=== PATIENT | male | born 1930 | race Caucasian/White ===

== ENCOUNTER 2016-11-16 11:54 | Inpatient (IN) ==
--- NOTE | 2016-11-16 12:34 | Emergency Department Report ---
SOB HPI - General Chief Complaint: Shortness of Breath/Dyspnea Stated Complaint: low oxygen Time Seen by Provider: 11/16/16 12:26 Source: patient Mode of arrival: ambulatory Limitations: no limitations - History of Present Illness He presents to ER today with his daughter. He has a granddaughter who is a [employer]ENTICE and checks on him. Today they checked his O2 and was noted to be 86% on RA. He has had increased fatigue over the last month or so. He usually takes care of his in the evenings but he has not really been able to do this even. He has had a cough that is productive of greyish sputum but otherwise has not had a fever. He does feel like his chest is heavy at night when he lays down to go to bed but has not really had any wheezing at all. 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 He has never been diagnosed with any respiratory illness or disease. Has had some heart issues in the past however. MD Complaint: shortness of breath Severity: moderate Consistency/Duration: constant Relieving factors: nothing Exacerbating factors: nothing Associated symptoms: cough, sputum production, other (fatigue) Treatment prior to arrival: none - Related Data Home Medications Medication Instructions Recorded Confirmed Atenolol 50 mg PO AM #0 tab 07/21/14 11/16/16 Finasteride 5 mg PO DAILY #0 tab 07/21/14 11/16/16 Amlodipine [Norvasc] 5 mg PO DAILY 11/16/16 11/16/16 Apixaban [Eliquis] 2.5 mg PO DAILY 11/16/16 11/16/16 Atenolol [Tenormin] 25 mg PO PM 11/16/16 11/16/16 Pravastatin Sodium 40 mg PO HS 11/16/16 11/16/16 Previous Rx's Medication Instructions Recorded Amiodarone HCl 200 mg PO DAILY #30 tab 09/02/14 Allergies Allergy/AdvReac Type Severity Reaction Status Date / Time No Known Allergies Allergy Verified 11/16/16 12:26 Review of Systems Constitutional: Reports: weakness. Denies: fever, chills ENT: Denies: ear pain, throat pain, congestion Cardiovascular: Denies: chest pain, palpitations, dyspnea on exertion, edema Respiratory: Reports: cough, dyspnea. Denies: wheezes Gastrointestinal: Denies: abdominal pain, nausea, vomiting, diarrhea Integumentary: Denies: rash Neurological: Denies: headache, weakness, numbness, paresthesias PFSH Patient Stated Medical History Cardiac Arrhythmia Yes: Hx of AFib- no longer Hypertension Yes atrial fibrillation BPH COPD CAD Hypertension Obesity - Social History Smoking status: Never smoker Substance use type: does not use Alcohol intake frequency: does not drink Physical Exam - Limitations Limitations: no limitations - General General appearance: alert, in no apparent distress - Normal Exams: ENMT:: No facial trauma, nasal exudates, pharyngeal erythema, or exudates are noted Neck:: Full range of motion, without adenopathy, JVD, bruits or thyromegaly Chest/Respirations:: Clear all olsen, with good airflow, and symmetry bilaterally Cardiovascular:: Regular rate and rhythm, without murmur or gallop, Pulses 2+ all extremities, capillary refill, <2 seconds all extremities Abdomen:: Bowel sounds positive, soft, non-tender, non-distended, no hepatosplenomegaly, masses or bruits noted Lymphatic:: No lymphadenopathy, or lymphedema noted Neurological:: Patient is alert, and oriented Psychiatric:: Patient exhibits, appropriate attention, emotion and affect Course Vital Signs Temperature 98.6 F 11/16/16 11:58 Pulse Rate 83 11/16/16 11:58 Respiratory Rate 22 11/16/16 11:58 Blood Pressure 126/87 11/16/16 11:58 Pulse Oximetry 86 L 11/16/16 11:58 Temperature 98.6 F 11/16/16 11:58 Pulse Rate 83 11/16/16 11:58 Respiratory Rate 22 11/16/16 11:58 Blood Pressure 126/87 11/16/16 11:58 Pulse Oximetry 86 L 11/16/16 11:58 Shortness of Breath/Dyspnea - [facility] Narrative Medical decision making narrative: His O2 remains at 91-93% on 2L O2 per NC. Chest xray does show moderate pulmonary edema. Troponin is negative. BNP elevated at 3800. Did discuss findings with Dr Do and he will accept for admission at this time. - Differential Diagnosis Likely: acute exacerbation of chronic obstructive airways disease, congestive heart failure, community acquired pneumonia - Lab Data Attestation: I reviewed the patient's lab results. Result diagrams: 11/16/16 12:21 11/16/16 12:21 Lab Results 11/16/16 11/16/16 Range/Units 12:21 12:21 WBC 10.5 (4.5-11.0) T/MM3 RBC 3.90 L (4.50-5.90) M/MM3 Hgb 12.2 L (13.5-17.5) GM/DL Hct 36.3 L (41-53) % MCV 93.1 (80-100) UM3 MCH 31.3 (26-34) UUG MCHC 33.6 (31-37) GM/DL RDW Std Deviation 47.2 (36.9-50.2) FL Plt Count 273 (130-400) T/MM3 MPV 10.5 (9.4-12.4) UM3 Immature Gran % (Auto) 1.1 H (0.0-0.5) % Neut % (Auto) 76.4 H (33-66) % Lymph % (Auto) 9.3 L (23-45) % [place] % (Auto) 10.8 H (0-9.0) % Eos % (Auto) 2.1 (0-4) % Baso % (Auto) 0.3 (0-2) % Neut # (Auto) 8.0 H (1.8-7.7) T/MM3 Lymph # (Auto) 1.0 (1-4.8) T/MM3 [place] # (Auto) 1.1 H (0-0.8) T/MM3 Eos # (Auto) 0.2 (0-0.5) T/MM3 Baso # (Auto) 0.0 (0-0.2) T/MM3 Abs Immat Gran (auto) 0.11 H (0.00-0.03) T/MM3 Turbidity < 20 (0-20) Sodium 138 (134-144) MEQ/L Potassium 4.7 (3.6-5) MEQ/L Chloride 102 (98-107) MEQ/L Carbon Dioxide 27 (22-30) MEQ/L Anion Gap 9 (5-15) MEQ/L BUN 30.0 H (9-20) MG/DL Creatinine 1.7 H (0.8-1.5) MG/DL GFR Calculation 38 BUN/Creatinine Ratio 18 (6-26) RATIO Glucose 104 (75-110) MG/DL Calculated Osmolality 272 (261-280) MOSM/KG Calcium 8.9 (8.4-10.2) MG/DL Total Bilirubin 1.50 H (0.20-1.30) MG/DL Icterus Index < 2 (0-7) AST 22 (17-59) U/L ALT 35 (21-72) U/L Alkaline Phosphatase 92 (38-126) U/L Troponin I < 0.012 (0-0.12) ng/ml B-Natriuretic Peptide 3880 H (0-175) pg/mL Total Protein 7.6 (6.3-8.2) G/DL Albumin 3.8 (3.5-5.0) G/DL Globulin 3.8 H (2.4-3.6) G/DL Albumin/Globulin Ratio 1.0 L (1.1-2.2) RATIO Specimen Hemolysis < 15 (0-25) - Radiology Data Attestation: I reviewed the patient's radiology results. Date of Exam: 11/16/16 Ordering Provider: Sophia Jaramillo APRN Type of Exam(s): XR chest 2V Reason for Exam(s): dyspnea INDICATION: dyspnea PROCEDURE: CHEST 2-VIEWS UPRIGHT (PA & LAT) Encounter: Initial COMPARISON: June 10, 2010 FINDINGS: Hazy airspace and interstitial reticular opacity in both lungs with a central predominance. No focal lobar consolidation, gross pleural effusion or pneumothorax. Heart size and mediastinal contours are stable. Pulmonary vascularity is somewhat indistinct. Impression: Findings most consistent with moderate pulmonary edema. . Disposition Clinical Impression: Congestive heart failure Qualifiers: Congestive heart failure type: unspecified congestive heart failure type Congestive heart failure chronicity: acute Qualified Code(s): I50.9 - Heart failure, unspecified Disposition: 02 To [facility] Acute Care Condition: Stable Time of Disposition: 13:27 - Seen By: midlevel
--- OUTSIDE RECORDS SUMMARY | 2016-11-16 12:42 | External Medical Summary ---
:1930 Author Organization [facility] Address [address] [place] [address] Care Team Providers Name Role Phone Antonio Moody Unavailable Unavailable PROBLEMS Type Condition ICD9-CM NTS96-CU Onset Condition SNOMED Code Code Code Dates Status Problem Paroxysmal atrial I48.0 Active 274135927 fibrillation Problem High risk Z79.899 Active 142131969 medication use Assessment Paroxysmal atrial I48.0 Feb, Active 737502250 fibrillation 2017 Assessment Atrial flutter I48.92 Feb, Active 1171991 2017 Problem Chronic Z79.01 Active 549616349 anticoagulation Problem Atrial fibrillation 427.31 Active 76099522 ALLERGIES Substance Reaction Event Type Date Status N.K.D.A. Unknown Non Drug Allergy Feb, Unknown SOCIAL HISTORY No smoking Hx information available PLAN OF CARE Activity Details Pending Test AtriaECW 1 Week after the procedure,Reason: VITAL SIGNS Height 68 in 2016-03-01 Weight 206 lbs 2016-03-01 BMI 31.32 kg/m2 2016-03-01 Oximetry 97% % 2016-03-01 Heart Rate 89 /min 2016-03-01 Blood pressure systolic 110 mm Hg 2016-03-01 Blood pressure diastolic 74 mm Hg 2016-03-01 MEDICATIONS Medication Instructions Dosage Frequency Start End Date Duration Status Date Amiodarone HCl Orally Once a 1 tablet 24h 90 days Active 200 MG day Eliquis 5 MG Orally bid 1 tablet 12h Active Finasteride 5 Orally Once a 1 tablet 24h Active MG day Tamsulosin HCl Orally Once a 1 capsule 24h Active 0.4 MG day Atenolol 50 MG Orally Once a 1 tablet in 24h Active day am, 1/2 tab in pm Simvastatin 80 Orally Once a 1/2 tablet 24h Active MG day Losartan Orally Once a 1 tablet 24h Active Potassium 100 day MG RESULTS No Results PROCEDURES Procedure Date Ordered Related Diagnosis Body Site ELECTROCARDIOGRAM, COMPLETE Mar 01, 2016 Office Visit, Est Pt., Level 4 Mar 01, 2016 IMMUNIZATIONS No Known Immunizations
--- OUTSIDE RECORDS SUMMARY | 2016-11-16 12:43 | External Medical Summary | Referral Summary ---
:1930 Author Care Team Providers Name Role Phone Kamran Luna Primary Care Physician Encounter [facility] [id number] Date(s): 06/11/14 - 06/11/14 Via SHEELA Chacko, Ang Family [address] [place] [id number] Discharge Diagnosis: Fatigue Discharge Diagnosis: Atrial fibrillation and flutter Discharge Diagnosis: Shortness of breath dyspnea Discharge Disposition: Home or Self Care Attending Physician: Kamran Luna MD Admitting Physician: Kamran Luna MD Vital Signs Most recent to oldest [Reference Range]: 1 Peripheral Pulse Rate [60-100 bpm] 84 bpm (06/11/14 3:23 PM) Blood Pressure [90-140/60-90 mmHg] 148/100 mmHg *HI* (06/11/14 3:23 PM) Problem List Condition Effective Dates Status Health Status Informant BPH (benign prostatic hypertrophy) Active with prostatism(Confirmed) Compression fracture of L2 lumbar Active vertebra with delayed healing(Confirmed) Hearing loss(Confirmed) Active Hypertension(Confirmed) Active Tobacco user(Confirmed) Active patient Chicken pox(Confirmed) Active Allergies, Adverse Reactions, Alerts No Known Medication Allergies Medications atenolol Oral, Daily, 0 Refill(s) Start Date: 06/11/14 Status: Orderedfinasteride 5 mg oral tablet 1 tabs, Oral, Daily, # 30 tabs, 0 Refill(s) Start Date: 06/11/14 Status: OrderedFlomax 0.4 mg oral capsule 1 caps, Oral, Daily, # 30 caps, 0 Refill(s) Start Date: 06/11/14 Status: OrderedMobic 7.5 mg oral tablet 1 tabs, Oral, BID, # 60 tabs, 4 Refill(s), Pharmacy: [facility] #[id number], 1 tabs Oral BID Start Date: 05/28/14 Status: Orderedmultivitamin Daily, 0 Refill(s) Start Date: 05/28/14 Status: Orderedsimvastatin 40 mg oral tablet 1 tabs, Oral, Bedtime (once a day), # 30 tabs, 0 Refill(s) Start Date: 06/11/14 Status: Ordered Results Hematology Most recent to oldest [Reference Range]: 1 WBC [4.8-10.8 K/uL] 9.7 K/uL (06/11/14 4:40 PM) RBC [4.60-6.20 M/uL] 4.56 M/uL *LOW* (06/11/14 4:40 PM) Hgb [14.0-18.0 gm/dL] 14.2 gm/dL (06/11/14 4:40 PM) Hct [42.0-52.0 %] 41.3 % *LOW* (06/11/14 4:40 PM) MCV [82.0-99.0 fL] 90.6 fL (06/11/14 4:40 PM) MCH [27.0-32.0 pg] 31.1 pg (06/11/14 4:40 PM) MCHC [32.0-36.0 gm/dL] 34.4 gm/dL (06/11/14 4:40 PM) RDW [11.5-14.5 %] 13.6 % (06/11/14 4:40 PM) Platelet [150-400 K/uL] 241 K/uL (06/11/14 4:40 PM) MPV [8.8-14.8 fL] 11.2 fL (06/11/14 4:40 PM) Immature Granulocytes [0.0-1.0 %] 0.3 % (06/11/14 4:40 PM) Neutrophils [51-75 %] 73 % (06/11/14 4:40 PM) Lymphocytes [20-46 %] 15 % *LOW* (06/11/14 4:40 PM) Monocytes [4-11 %] 9 % (06/11/14 4:40 PM) Eosinophils [0-4 %] 4 % (06/11/14 4:40 PM) Basophils [0-2 %] 0 % (06/11/14 4:40 PM) Neutro Absolute [1.90-7.00 THOUS] 7.06 THOUS *HI* (06/11/14 4:40 PM) Lymph Absolute [0.80-3.30 THOUS] 1.41 THOUS (06/11/14 4:40 PM) Cole Absolute [0.30-1.00 THOUS] 0.86 THOUS (06/11/14 4:40 PM) Eos Absolute [0.00-0.50 THOUS] 0.35 THOUS (06/11/14 4:40 PM) Baso Absolute [0.00-0.20 THOUS] 0.03 THOUS (06/11/14 4:40 PM) Chemistry Most recent to oldest [Reference Range]: 1 Sodium Lvl [135-144 mEq/L] 138 mEq/L (06/11/14 4:40 PM) Potassium Lvl [3.5-5.2 mEq/L] 4.9 mEq/L (06/11/14 4:40 PM) Chloride [99-111 mEq/L] 103 mEq/L (06/11/14 4:40 PM) CO2 [23-31 mEq/L] 26 mEq/L (06/11/14 4:40 PM) AGAP [3-20] 9 (06/11/14 4:40 PM) BUN [8-26 mg/dL] 33 mg/dL *HI* (06/11/14 4:40 PM) Glucose Lvl [70-99 mg/dL] 97 mg/dL (06/11/14 4:40 PM) Creatinine Lvl [0.72-1.25 mg/dL] 1.74 mg/dL *HI* (06/11/14 4:40 PM) eGFR [>60 mL/min] 38 mL/min 1 *ABN* (06/11/14 4:40 PM) Calcium Lvl [8.9-10.5 mg/dL] 10.0 mg/dL (06/11/14 4:40 PM) Albumin Lvl [3.4-4.8 gm/dL] 4.2 gm/dL (06/11/14 4:40 PM) Total Protein [6.2-8.1 gm/dL] 6.8 gm/dL (06/11/14 4:40 PM) Globulin [1.8-4.0 gm/dL] 2.6 gm/dL (06/11/14 4:40 PM) ALT [0-55 unit/L] 38 unit/L (06/11/14 4:40 PM) AST [5-34 unit/L] 33 unit/L (06/11/14 4:40 PM) Alk Phos [40-150 unit/L] 55 unit/L (06/11/14 4:40 PM) Bili Total [0.2-1.2 mg/dL] 0.9 mg/dL (06/11/14 4:40 PM) Troponin [0.00-0.03 ng/mL] 0.03 ng/mL (06/11/14 4:40 PM) T4 [4.8-11.7 mcg/dL] 5.6 mcg/dL (06/11/14 4:40 PM) TSH [0.35-4.94] 2.67 (06/11/14 4:40 PM) 1Result Comment: Multiply eGFR results by 1.21 for race. Immunizations No data available for this section Procedures Procedure Date Related Diagnosis Body Site Procedure-NANDO 08/12/02 Circumcision Vasectomy Social History Social History Type Response Smoking Status Former smoker; Type: Cigarettes Assessment and Plan Extracted from: Title: Office Visit Note Author: Kamran Luna MD Date: 06/11/14 Assessment/Plan Atrial fibrillation and flutter Discussed the usage of Coumadin verse Xarelto. Lab is pending and will set patient up to see a power manager for further evaluation. Ordered: Office Visit Level 4 Est 11014 Fatigue Ordered: Office Visit Level 4 Est 06004 T4 Troponin TSH 3rd Generation Shortness of breath dyspnea Ordered: CBC w/ Differential Comprehensive Metabolic Panel Office Visit Level 4 Est 34355
--- OUTSIDE RECORDS SUMMARY | 2016-11-16 12:43 | External Medical Summary | Referral Summary ---
:1930 Author Organization [facility] Address [address] [place] [address] [place] [phone] Care Team Providers Name Role Phone Kamran Luna Primary Care Physician Encounter VC Date(s): 10/27/15 - 10/27/15 [facility] [address] [place] [phone] Discharge Diagnosis: Atrial fibrillation and flutter Discharge Diagnosis: Hypertension Discharge Disposition: 01-Home or Self Care Attending Physician: Amy Ellis PA-C Admitting Physician: Amy Ellis PA-C Vital Signs Most recent to oldest [Reference Range]: 1 Peripheral Pulse Rate [60-100 bpm] 60 bpm (10/27/15 2:12 PM) Respiratory Rate [14-20 br/min] 20 br/min (10/27/15 2:12 PM) Blood Pressure [90-140/60-90 mmHg] 162/68 mmHg *HI* (10/27/15 2:12 PM) SpO2 95 % (10/27/15 2:12 PM) Problem List Condition Effective Dates Status Health Status Informant Atrial fibrillation and Active flutter(Confirmed) BPH (benign prostatic hypertrophy) Active with prostatism(Confirmed) Chronic obstructive pulmonary disease Active (COPD)(Confirmed) Compression fracture of L2 lumbar Active vertebra with delayed healing(Confirmed) CAD (coronary artery Active disease)(Confirmed) Hearing loss(Confirmed) Active Hypertension(Confirmed) Active Obesity(Confirmed) Active patient Incidental pulmonary nodule(Confirmed) Active Tobacco user(Confirmed) Active patient Chicken pox(Confirmed) Active Allergies, Adverse Reactions, Alerts No Known Medication Allergies Medications amiodarone Daily, 0 Refill(s) Start Date: 10/22/14 Status: Orderedatenolol 50 mg, Oral, Daily, 0 Refill(s) Start Date: 06/11/14 Status: Orderedfinasteride 5 mg oral tablet 1 tabs, Oral, Daily, # 30 tabs, 0 Refill(s) Start Date: 06/11/14 Status: OrderedFlomax 0.4 mg oral capsule 1 caps, Oral, Daily, # 30 caps, 0 Refill(s) Start Date: 06/11/14 [facility] and Treat DX: I50.9, # 1 Each, 0 Refill(s) Start Date: 03/24/15 Status: Orderedlosartan 100 mg oral tablet 1 tabs, Oral, Daily, # 90 tabs, 0 Refill(s) Start Date: 06/20/14 Status: OrderedPradaxa 150 mg oral capsule 1 caps, Oral, BID, # 180 caps, 0 Refill(s) Start Date: 06/20/14 Status: Orderedsimvastatin 40 mg oral tablet 1 tabs, Oral, Bedtime (once a day), # 30 tabs, 0 Refill(s) Start Date: 06/11/14 Status: Ordered Results No data available for this section Immunizations No data available for this section Procedures Procedure Date Related Diagnosis Body Site Procedure-NANDO 08/12/02 Circumcision Vasectomy Social History Social History Type Response Smoking Status Former smoker; Type: Cigarettes Assessment and Plan Extracted from: Title: Ambulatory Patient Education Author: Amy Ellis PA-C Date: Cardiovascular Atrial Fibrillation Atrial fibrillation is a type of irregular heart rhythm (arrhythmia). During atrial fibrillation, the upper chambers of the heart (atria) quiver continuously in a chaotic pattern. This causes an irregular and often rapid heart rate. Atrial fibrillation is the result of the heart becoming overloaded with disorganized signals that tell it to beat. These signals are normally released one at a time by a part of the right atrium called the sinoatrial node. They then travel from the atria to the lower chambers of the heart (ventricles), causing the atria and ventricles to contract and pump blood as they pass. In atrial fibrillation, pa rts of the atria outside of the sinoatrial node also release these signals. This results in two problems. First, the atria receive so many signals that they do not have time to fully contract. Second, t he ventricles, which can only receive one signal at a time, beat irregularly and out of rhythm with the atria. There are three types of atrial fibrillation: Paroxysmal. Paroxysmal atrial fibrillation starts suddenly and stops on its own within a week. Persistent. Persistent atrial fibrillation lasts for more than a week. It may stop on its own or with treatment. Permanent. Permanent atrial fibrillation does not go away. Episodes of atrial fibrillation may lead to permanent atrial fibrillation. Atrial fibrillation can prevent your heart from pumping blood normally. It increases your risk of stroke and can lead to heart failure. CAUSES Heart conditions, including a heart attack, heart failure, coronary artery disease, and heart valve conditions. Inflammation of the sac that surrounds the heart (pericarditis). Blockage of an artery in the lungs (pulmonary embolism). Pneumonia or other infections. Chronic lung disease. Thyroid problems, especially if the thyroid is overactive ( hyperthyroidism). Caffeine, excessive alcohol use, and use of some illegal drugs. Use of some medicines, including certain decongestants and diet pills. Heart surgery. defects. Sometimes, no cause can be found. When this happens, the atrial fibrillation is called lone atrial fibrillation. The risk of complications from atrial fibrillation increases if you have lone atrial fibrillation and you are age 60 years or older. RISK FACTORS Heart failure. Coronary artery disease. Diabetes mellitus. High blood pressure (hypertension). Obesity. Other arrhythmias. Increased age. SIGNS AND SYMPTOMS A feeling that your heart is beating rapidly or irregularly. A feeling of discomfort or pain in your chest. Shortness of breath. Sudden light-headedness or weakness. Getting tired easily when exercising. Urinating more often than normal (mainly when atrial fibrillation first begins). In paroxysmal atrial fibrillation, symptoms may start and suddenly stop. DIAGNOSIS Your health care provider may be able to detect atrial fibrillation when taking your pulse. Your health care provider may have you take a test called an ambulatory electrocardiogram (ECG). An ECG record s your heartbeat patterns over a 24-hour period. You may also have other tests , such as: Transthoracic echocardiogram (TTE). During echocardiography, sound waves are used to evaluate how blood flows through your heart. Transesophageal echocardiogram ([facility]RAYDON). Stress test. There is more than one type of stress test. If a stress test is needed, ask your health care provider about which type is best for you. Chest X-ray exam. Blood tests. Computed tomography (CT). TREATMENT Treatment may include: Treating any underlying conditions. For example, if you have an overactive thyroid, treating the condition may correct atrial fibrillation. Taking medicine. Medicines may be given to control a rapid heart rate or to prevent blood clots, heart failure, or a stroke. Having a procedure to correct the rhythm of the heart: Electrical cardioversion. During electrical cardioversion, a controlled , low-energy shock is delivered to the heart through your skin. If you have chest pain, very low blood pressure, or sudden h eart failure, this procedure may need to be done as an emergency. Catheter ablation. During this procedure, heart tissues that send the signals that cause atrial fibrillation are destroyed. Surgical ablation. During this surgery, thin lines of heart tissue that carry the abnormal signals are destroyed. This procedure can either be an open- heart surgery or a minimally invasive surger y. With the minimally invasive surgery, small cuts are made to access the heart instead of a large opening. Pulmonary venous isolation. During this surgery, tissue around the veins that carry blood from the lungs (pulmonary veins) is destroyed. This tissue is thought to carry the abnormal signals. HOME CARE INSTRUCTIONS Take medicines only as directed by your health care provider. Some medicines can make atrial fibrillation worse or recur. If blood thinners were prescribed by your health care provider, take them exactly as directed. Too much blood-thinning medicine can cause bleeding. If you take too little, you will not have the n eeded protection against stroke and other problems. Perform blood tests at home if directed by your health care provider. Perform blood tests exactly as directed. Quit smoking if you smoke. Do not drink alcohol. Do not drink caffeinated beverages such as coffee, soda, and some teas. You may drink decaffeinated coffee, soda, or tea. Maintain a healthy weight.Do not use diet pills unless your health care provider approves. They may make heart problems worse. Follow diet instructions as directed by your health care provider. Exercise regularly as directed by your health care provider. Keep all follow-up visits as directed by your health care provider. This is important. PREVENTION The following substances can cause atrial fibrillation to recur: Caffeinated beverages. Alcohol. Certain medicines, especially those used for breathing problems. Certain herbs and herbal medicines, such as those containing ephedra or ginseng. Illegal drugs, such as cocaine and amphetamines. Sometimes medicines are given to prevent atrial fibrillation from recurring. Proper treatment of any underlying condition is also important in helping prevent recurrence. SEEK MEDICAL CARE IF: You notice a change in the rate, rhythm, or strength of your heartbeat. You suddenly begin urinating more frequently. You tire more easily when exerting yourself or exercising. SEEK IMMEDIATE MEDICAL CARE IF: You have chest pain, abdominal pain, sweating, or weakness. You feel nauseous. You have shortness of breath. You suddenly have swollen feet and ankles. You feel dizzy. Your face or limbs feel numb or weak. You have a change in your vision or speech. MAKE SURE YOU: Understand these instructions. Will watch your condition. Will get help right away if you are not doing well or get worse. This information is not intended to replace advice given to you by your health care provider. Make sure you discuss any questions you have with your health care provider. Document Released: 02/06/2006 Document Revised: 02/27/2015 Document Reviewed: 03/19/2013 [facility] Patient Information 2016 [facility]. [facility] Medicine Hypertension Hypertension, commonly called high blood pressure, is when the force of blood pumping through your arteries is too strong. Your arteries are the blood vessels that carry blood from your heart throughout your body. A blood pressure reading consists of a higher number over a lower number, such as 110/72. The higher number (systolic) is the pressure inside your arteries when your heart pumps. The lower n umber (diastolic) is the pressure inside your arteries when your heart relaxes. Ideally you want your blood pressure below 120/80. Hypertension forces your heart to work harder to pump blood. Your arteries may become narrow or stiff. Having hypertension puts you at risk for heart disease, stroke, and other problems. RISK FACTORS Some risk factors for high blood pressure are controllable. Others are not. Risk factors you cannot control include: Race. You may be at higher risk if you are . Age. Risk increases with age. Gender. Men are at higher risk than women before age 45 years. After age 65, women are at higher risk than men. Risk factors you can control include: Not getting enough exercise or physical activity. Being overweight. Getting too much fat, sugar, calories, or salt in your diet. Drinking too much alcohol. SIGNS AND SYMPTOMS Hypertension does not usually cause signs or symptoms. Extremely high blood pressure (hypertensive crisis) may cause headache, anxiety, shortness of breath , and nosebleed. DIAGNOSIS To check if you have hypertension, your health care provider will measure your blood pressure while you are seated, with your arm held at the level of your heart. It should be measured at least twice us ing the same arm. Certain conditions can cause a difference in blood pressure between your right and left arms. A blood pressure reading that is higher than normal on one occasion does not mean that you need treatment. If it is not clear whether you have high blood pressure, you may be asked to return on a different day to have your blood pressure checked again. Or, you may be asked to monitor your blood pressure at home for 1 or more weeks. TREATMENT Treating high blood pressure includes making lifestyle changes and possibly taking medicine. Living a healthy lifestyle can help lower high blood pressure. You may need to change some of your habits. Lifestyle changes may include: Following the DASH diet. This diet is high in fruits, vegetables, and whole grains. It is low in salt, red meat, and added sugars. Keep your sodium intake below 2,300 mg per day. Getting at least 3045 minutes of aerobic exercise at least 4 times per week. Losing weight if necessary. Not smoking. Limiting alcoholic beverages. Learning ways to reduce stress. Your health care provider may prescribe medicine if lifestyle changes are not enough to get your blood pressure under control, and if one of the following is true: Your systolic blood pressure is above 150. Your diastolic blood pressure is above 90. You have diabetes, and your systolic blood pressure is over 140 or your diastolic blood pressure is over 85. You have heart disease or have had a stroke or heart attack, and your blood pressure is above 130 over 80, which is written as 130/80. HOME CARE INSTRUCTIONS Have your blood pressure rechecked as directed by your health care provider. Take medicines only as directed by your health care provider. Follow the directions carefully. Blood pressure medicines must be taken as prescribed. The medicine does not work as well when you sk ip doses. Skipping doses also puts you at risk for problems. Do not smoke. Monitor your blood pressure at home as directed by your health care provider. SEEK MEDICAL CARE IF: You think you are having a reaction to medicines taken. You have recurrent headaches or feel dizzy. You have swelling in your ankles. You have trouble with your vision. SEEK IMMEDIATE MEDICAL CARE IF: You develop a severe headache or confusion. You have unusual weakness, numbness, or feel faint. You have severe chest or abdominal pain. You vomit repeatedly. You have trouble breathing. MAKE SURE YOU: Understand these instructions. Will watch your condition. Will get help right away if you are not doing well or get worse. This information is not intended to replace advice given to you by your health care provider. Make sure you discuss any questions you have with your health care provider. Document Released: 02/06/2006 Document Revised: 02/27/2015 Document Reviewed: 11/29/2013 [employer] Patient Information 2016 [place] [facility]. No follow up information was provided. Extracted from: Title: Office Visit Note- Breathing Author: Amy Ellis PA-C Date: issue Assessment/Plan Atrial fibrillation and flutter D/w pt and daughter that this type of breathing is normal. He is not really having any abnormal/atypical sx. He had ablation and is rate controlled for his a-fib. He st ates that he did have a change in his anti-coagulant. He is not on Pradaxa anymore, but doesn't remember what it is. He will call us with the name when he gets home. Continue to f/u with Dr. Centeno at next scheduled appt. Ordered: Office Visit Level 3 Est 69004 Hypertension BP was elevated today.On recheck, it was 144/82. D/w pt to check occasionally at home. No change in meds at this time. Ordered: Office Visit Level 3 Est 23953
--- OUTSIDE RECORDS SUMMARY | 2016-11-16 12:43 | External Medical Summary ---
:1930 Author Organization [employer] Care Team Providers Name Role Phone Savanna Moodydaronkathy Provider Role Unavailable Allergies, Adverse Reactions, Alerts Substance Reaction Event Type N.K.D.A. Info Not Available Non Drug Allergy Problems Problem Type Condition ICD-9 Code Onset Dates Condition Status Assessment Atrial fibrillation 427.31 Active Assessment Atrial flutter 427.32 Active Problem Atrial fibrillation 427.31 Active Assessment High Risk Med V58.69 Active Assessment Chronic Anticoagulation V58.61 Active Medications Medication Code Code Instructions Start End Date Status Dosage System Date Pradaxa [facility] 39009-78 150 MG Orally 1 capsule 35-54 Twice a day Amiodarone HCl NDC 81569-23 200 MG Orally Sep 23, 1 tablet 33-06 Once a day 2014 Simvastatin NDC 17330-36 80 MG Orally 1/2 tablet 56-10 Once a day Tamsulosin HCl NDC 18038-17 0.4 MG Orally 1 capsule 38-01 Once a day 30 minutes after the same meal each day Losartan NDC 10121-52 100 MG Orally 1 tablet Potassium 25-22 Once a day Finasteride NDC 99613-56 5 MG Orally Once 1 tablet 55-01 a day Atenolol NDC 57309-61 50 MG Orally 1 tablet 52-01 Once a day Amiodarone HCl NDC 45690-50 200 MG Orally 1 tablet 33-06 Once a day Procedures Procedure Coding System Code Date Office Visit, Est Pt., Level 4 CPT-4 09981 Oct 14, 2014 ELECTROCARDIOGRAM, COMPLETE CPT-4 68971 Oct 14, 2014 Vital Signs Date/Time: Oct 14, 2014 BMI 31.05 Index Weight 204.2 lbs Height 68 in Cardiac Monitoring Heart Rate 79 /min Oximetry 97% % Blood Pressure Diastolic 80 mm Hg Blood Pressure Systolic 130 mm Hg Results No Known Results Summary Purpose [employer]ClinicalWorks Submission
--- OUTSIDE RECORDS SUMMARY | 2016-11-16 12:43 | External Medical Summary ---
:1930 Author Organization [employer] Care Team Providers Name Role Phone Antonio Moody Provider Role Unavailable Allergies No Known Allergies Problems No Known Problems Medications No Known Medications Results No Known Results Summary Purpose [employer] Submission
--- OUTSIDE RECORDS SUMMARY | 2016-11-16 12:43 | External Medical Summary | Referral Summary ---
:1930 Author Organization [facility] [address] [place] [phone] Care Team Providers Name Role Phone Kamran Luna Primary Care Physician Encounter VC Date(s): 07/30/14 - 07/30/14 [facility] [address] [place] [phone] [place] Discharge Diagnosis: Chronic renal insufficiency Discharge Disposition: 01-Home or Self Care Attending Physician: Kamran Luna MD Admitting Physician: Kamran Luna MD Vital Signs Most recent to oldest [Reference Range]: 1 Blood Pressure [90-140/60-90 mmHg] 124/84 mmHg (07/30/14 1:57 PM) Problem List Condition Effective Dates Status Health Status Informant Atrial fibrillation and Active flutter(Confirmed) BPH (benign prostatic hypertrophy) Active with prostatism(Confirmed) Chronic obstructive pulmonary disease Active (COPD)(Confirmed) Compression fracture of L2 lumbar Active vertebra with delayed healing(Confirmed) CAD (coronary artery Active disease)(Confirmed) Hearing loss(Confirmed) Active Hypertension(Confirmed) Active Incidental pulmonary nodule(Confirmed) Active Tobacco user(Confirmed) Active [...] caps, 0 Refill(s) Start Date: 06/11/14 Status: OrderedHome Health Home Health, See Instructions, Progressive Home Health Medication Monitoring and set up Foot Care, # 1 Each, 0 Refill(s) Start Date: 08/07/14 Status: Orderedlosartan 100 mg oral tablet 1 tabs, Oral, Daily, # 90 tabs, 0 Refill(s) Start Date: 06/20/14 Status: OrderedPradaxa 150 mg oral capsule 1 caps, Oral, BID, # 180 caps, 0 Refill(s) Start Date: 06/20/14 Status: Orderedsimvastatin 40 mg oral tablet 1 tabs, Oral, Bedtime (once a day), # 30 tabs, 0 Refill(s) Start Date: 06/11/14 Status: Ordered Results Chemistry Most recent to oldest [Reference Range]: 1 Sodium Lvl [135-144 mEq/L] 138 mEq/L (07/30/14 2:40 PM) Potassium Lvl [3.5-5.2 mEq/L] 4.1 mEq/L (07/30/14 2:40 PM) Chloride [99-111 mEq/L] 100 mEq/L (07/30/14 2:40 PM) CO2 [23-31 mEq/L] 27 mEq/L (07/30/14 2:40 PM) AGAP [3-20] 11 (07/30/14 2:40 PM) BUN [8-26 mg/dL] 31 mg/dL *HI* (07/30/14 2:40 PM) Glucose Lvl [70-99 mg/dL] 98 mg/dL (07/30/14 2:40 PM) Creatinine Lvl [0.72-1.25 mg/dL] 1.53 mg/dL *HI* (07/30/14 2:40 PM) eGFR [>60 mL/min] 44 mL/min 1 *ABN* (07/30/14 2:40 PM) Calcium Lvl [8.9-10.5 mg/dL] 9.8 mg/dL (07/30/14 2:40 PM) 1Result Comment: Multiply eGFR results by 1.21 for race. Immunizations No data available for this section Procedures Procedure Date Related Diagnosis Body Site Procedure-NANDO 08/12/02 Circumcision Vasectomy Social History Social History Type Response Smoking Status Former smoker; Type: Cigarettes Assessment and Plan Extracted from: Title: Ambulatory Patient Education Author: Kamran Luna MD Date: Family Medicine Coronary Artery Disease, Risk Factors Research has shown that the risk of developing coronary artery disease (CAD) and having a heart attack increases with each factor you have. RISK FACTORS YOU CANNOT CHANGE Your age. Your risk goes up as you get older. Most heart attacks happen to people over the age of 65. Gender. Men have a greater risk of heart attack than women, and they have attacks earlier in life. However, women are more likely to from a heart attack. Heredity. Children of parents with heart disease are more likely to develop it themselves. Race. Americans and other ethnic groups have a higher risk, possibly because of high blood pressure, a tendency toward obesity, and diabetes. Your family. Most people with a strong family history of heart disease have one or more other risk factors. RISK FACTORS YOU CAN CHANGE Exposure to tobacco smoke. Even secondhand smoke greatly increases the risk for heart disease. High blood cholesterol may be lowered with changes in diet, activity, and medicines. High blood pressure makes the heart work harder. This causes the heart muscles to become thick and, eventually, weaker. It also increases your risk of stroke, heart attack, and kidney or heart failure. Physical inactivity is a risk factor for CAD. Regular physical activity helps prevent heart and blood vessel disease. Exercise helps control blood cholesterol, diabetes, obesity, and it may help lower blood pressure in some people. Excess body fat, especially belly fat, increases the risk of heart disease and stroke even if there are no other risk factors. Excess weight increases the heart's workload and raises blood pressure and blood cholesterol. Diabetes seriously increases your risk of developing CAD. If you have diabetes, you should work with your caregiver to manage it and control other risk factors. OTHER RISK FACTORS FOR CAD How you respond to stress. Drinking too much alcohol may raise blood pressure, cause heart failure, and lead to stroke. Total cholesterol greater than 200 milligrams. HDL (good) cholesterol less than 40 milligrams. HDL helps keep cholesterol from building up in the patrick of the arteries. PREVENTING CAD Maintain a healthy weight. Exercise or do physical activity. Eat a heart-healthy diet low in fat and salt and high in fiber. Control your blood pressure to keep it below 120 over 80. Keep your cholesterol at a level that lowers your risk. Manage diabetes if you have it. Stop smoking. Learn how to manage stress. HEART SMART SUBSTITUTIONS Instead of whole or 2% milk and cream, use skim milk. Instead of fried foods, eat baked, steamed, boiled, broiled, or microwaved foods. Instead of lard, butter, palm and coconut oils, cook with unsaturated vegetable oils, such as corn, olive, canola, safflower, sesame, soybean, sunflower, or peanut. Instead of fatty cuts of meat, eat lean cuts of meat or cut off the fatty parts. Instead of 1 whole egg in recipes, use 2 egg whites. Instead of sauces, butter, and salt, season vegetables with herbs and spices. Instead of regular hard and processed cheeses, eat low-fat, low-sodium cheeses. Instead of salted potato chips, choose low-fat, unsalted tortilla and potato chips and unsalted pretzels and popcorn. Instead of sour cream and mayonnaise, use plain low-fat yogurt, low-fat cottage cheese, or low-fat or "light" sour cream. FOR MORE INFORMATION National Heart Lung and Blood [place]: www.nhlbi.nih.gov/health/hearttruth [employer]: www.heart.org/HEARTORG Document Released: 04/28/2004 Document Revised: 04/30/2012 Document Reviewed: 04/23/2008 ExitCare Patient Information 2014 [employer]. Chronic Kidney Disease Chronic kidney disease occurs when the kidneys are damaged over a long period. The kidneys are two organs that lie on either side of the spine between the middle of the back and the front of the abdomen. The kidneys: Remove wastes and extra water from the blood. Produce important hormones. These help keep bones strong, regulate blood pressure, and help create red blood cells. Balance the fluids and chemicals in the blood and tissues. A small amount of kidney damage may not cause problems, but a large amount of damage may make it difficult or impossible for the kidneys to work the way they should. If steps are not taken to slow down the kidney damage or stop it from getting worse, the kidneys may stop working permanently. Most of the time, chronic kidney disease does not go away. However , it can often be controlled, and those with the disease can usually live normal lives. CAUSES The most common causes of chronic kidney disease are diabetes and high blood pressure (hypertension ). Chronic kidney disease may also be caused by: Diseases that cause kidneys' filters to become inflamed. Diseases that affect the immune system. Genetic diseases. Medicines that damage the kidneys, such as anti-inflammatory medicines. Poisoning or exposure to toxic substances. A reoccurring kidney or urinary infection. A problem with urine flow. This may be caused by: Cancer. Kidney stones. An enlarged prostate in males. SYMPTOMS Because the kidney damage in chronic kidney disease occurs slowly, symptoms develop slowly and may not be obvious until the kidney damage becomes severe. A person may have a kidney disease for years wit hout showing any symptoms. Symptoms can include: Swelling (edema ) of the legs, ankles, or feet. Tiredness (lethargy ). Nausea or vomiting. Confusion. Problems with urination, such as: Decreased urine production. Frequent urination, especially at night. Frequent accidents in children who are potty trained. Muscle twitches and cramps. Shortness of breath. Weakness. Persistent itchiness. Loss of appetite. Metallic taste in the mouth. Trouble sleeping. Slowed development in children. Short stature in children. DIAGNOSIS Chronic kidney disease may be detected and diagnosed by tests, including blood , urine, imaging, or kidney biopsy tests. TREATMENT Most chronic kidney diseases cannot be cured. Treatment usually involves relieving symptoms and preventing or slowing the progression of the disease. Treatment may include: A special diet. You may need to avoid alcohol and foods thatare salty and high in potassium. Medicines. These may: Lower blood pressure. Relieve anemia. Relieve swelling. Protect the bones. HOME CARE INSTRUCTIONS Follow your prescribed diet. Only take fyfx-sxa-urrufzk or prescription medicines as directed by your caregiver. Do not take any new medicines (prescription, wmss-srj-niudcpb, or nutritional supplements) unless approved by your caregiver. Many medicines can worsen your kidney damage or need to have the dose adjusted. Quit smoking if you are a smoker. Talk to your caregiver about a smoking cessation program. Keep all follow-up appointments as directed by your caregiver. SEEK IMMEDIATE MEDICAL CARE IF: Your symptoms get worse or you develop new symptoms. You develop symptoms of end-stage kidney disease. These include: Headaches. Abnormally dark or light skin. Numbness in the hands or feet. Easy bruising. Frequent hiccups. Menstruation stops. You have a fever. You have decreased urine production. You havepain or bleeding when urinating. MAKE SURE YOU: Understand these instructions. Will watch your condition. Will get help right away if you are not doing well or get worse. FOR MORE INFORMATION [employer] Association of Kidney Patients: www.aakp.org National Kidney Foundation: www.kidney.org [employer]: www.akfinc.org Life [facility]: www.lifeoptions.org and www.kidneyschool.org Document Released: 11/15/2008 Document Revised: 01/23/2013 Document Reviewed: 10/05/2012 ExitCare Patient Information 2014 [employer]. No follow up information was provided. Extracted from: Title: Office Visit Note Author: Kamran Luna MD Date: 07/30/14 Assessment/Plan Atrial fibrillation and flutter Continue with the current medications. Refill the medications. Reviewed the lab and will follow up in 3 months. Ordered: Office Visit Level 4 Est 41783 Chronic renal insufficiency Ordered: Office Visit Level 4 Est 80990 Hypertension Ordered: Office Visit Level 4 Est 74252
--- OUTSIDE RECORDS SUMMARY | 2016-11-16 12:43 | External Medical Summary | Referral Summary ---
:1930 Author [facility] [address] [place] [address] [place] [phone] Care Team Providers Name Role Phone Kamran Luna Primary Care Physician Encounter VC Date(s): 05/01/15 - 05/01/15 [facility] [address] [place] [phone] [place] Discharge Disposition: 01-Home or Self Care Attending Physician: Kamran Luna MD Admitting Physician: Kamran Luna MD Vital Signs Most recent to oldest [Reference Range]: 1 Blood Pressure [90-140/60-90 mmHg] 138/90 mmHg (05/01/15 1:07 PM) Problem List Condition Effective Dates Status [...] Status: OrderedHome Health Home Health, See Instructions, Evaluate and Treat DX: I50.9, [...] Author: Kamran Luna MD Date: Family Medicine Cardiac Ablation Cardiac ablation is a procedure to disable a small amount of heart tissue in very specific places. The heart has many electrical connections. Sometimes these connections are abnormal and can cause the h eart to beat very fast or irregularly. By disabling some of the problem areas, heart rhythm can be improved or made normal. Ablation is done for people who: Have Skqlv-Tgialbsjc-Ohdtl syndrome. Have other fast heart rhythms (tachycardia). Have taken medicines for an abnormal heart rhythm (arrhythmia) that resulted in: No success. Side effects. May have a high-risk heartbeat that could result in . LET YOUR HEALTH CARE PROVIDER KNOW ABOUT: Any allergies you have or any previous reactions you have had to X-ray dye, food (such as seafood), medicine, or tape. All medicines you are taking, including vitamins, herbs, eye drops, creams, and jawz-mqm-cfrnska medicines. Previous problems you or members of your family have had with the use of anesthetics. Any blood disorders you have. Previous surgeries or procedures (such as a kidney transplant) you have had. Medical conditions you have (such as kidney failure). RISKS AND COMPLICATIONS Generally, cardiac ablation is a safe procedure. However, problems can occur and include: Increased risk of cancer. Depending on how long it takes to do the ablation, the dose of radiation can be high. Bruising and bleeding where a thin, flexible tube (catheter) was inserted during the procedure. Bleeding into the chest, especially into the sac that surrounds the heart (serious). Need for a permanent pacemaker if the normal electrical system is damaged. The procedure may not be fully effective, and this may not be recognized for months. Repeat ablation procedures are sometimes required. BEFORE THE PROCEDURE Follow any instructions from your health care provider regarding eating and drinking before the procedure. Take your medicines as directed at regular times with water, unless instructed otherwise by your health care provider. If you are taking diabetes medicine, including insulin, ask how you are to t skylar it and if there are any special instructions you should follow. It is common to adjust insulin dosing the day of the ablation. PROCEDURE An ablation is usually performed in a catheterization laboratory with the guidance of fluoroscopy. Fluoroscopy is a type of X-ray that helps your health care provider see images of your heart during the procedure. An ablation is a minimally invasive procedure. This means a small cut ( incision) is made in either your neck or groin. Your health care provider will decide where to make the incision based on your medical history and physical exam. An IV tube will be started before the procedure begins. You will be given an anesthetic or medicine to help you relax (sedative). The skin on your neck or groin will be numbed. A needle will be inserted into a large vein in your neck or groin and catheters will be threaded to your heart. A special dye that shows up on fluoroscopy pictures may be injected through the catheter. The dye helps your health care provider see the area of the heart that needs treatment. The catheter has electrodes on the tip. When the area of heart tissue that is causing the arrhythmia is found, the catheter tip will send an electrical current to the area and "scar" the tissue. Three types of energy can be used to ablate the heart tissue: Heat (radiofrequency energy). Laser energy. Extreme cold (cryoablation). When the area of the heart has been ablated, the catheter will be taken out. Pressure will be held on the insertion site. This will help the insertion site clot and keep it from bleeding. A bandage will be placed on the insertion site. AFTER THE PROCEDURE After the procedure, you will be taken to a recovery area where your vital signs (blood pressure, heart rate, and breathing) will be monitored. The insertion site will also be monitored for bleeding. You will need to lie still for 46 hours. This is to ensure you do not bleed from the catheter insertion site. This information is not intended to replace advice given to you by your health care provider. Make sure you discuss any questions you have with your health care provider. Document Released: 06/25/2009 Document Revised: 06/23/2014 Document Reviewed: 07/01/2013 [facility] Patient Information 2015 [employer] [facility]. Benign Prostatic Hypertrophy The prostate gland is part of the reproductive system of men. A normal prostate is about the size and shape of a walnut. The prostate gland produces a fluid that is mixed with sperm to make semen. This gland surrounds the urethra and is located in front of the rectum and just below the bladder. The bladder is where urine is stored. The urethra is the tube through which urine passes from the bladder to get out of the body. The prostate grows as a man ages. An enlarged prostate not caused by cancer is called benign prostatic hypertrophy (BPH). An enlarged prostate can press on the urethra. This can make it harder to pass u rine. In the early stages of enlargement, the bladder can get by with a narrowed urethra by forcing the urine through. If the problem gets worse, medical or surgical treatment may be required. This condition should be followed by your health care provider. The accumulation of urine in the bladder can cause infection. Back pressure and infection can progress to bladder damage and kidney (renal ) failure. If needed, your health care provider may refer you to a specialist in kidney and prostate disease (urologist). CAUSES BPH is a common health problem in men older than 50 years. This condition is a normal part of aging. However, not all men will develop problems from this condition. If the enlargement grows away from th e urethra, then there will not be any compression of the urethra and resistance to urine flow.If the growth is toward the urethra and compresses it , you will experience difficulty urinating. SYMPTOMS Not able to completely empty your bladder. Getting up often during the night to urinate. Need to urinate frequently during the day. Difficultly starting urine flow. Decrease in size and strength of your urine stream. Dribbling after urination. Pain on urination (more common with infection). Inability to pass urine. This needs immediate treatment. The development of a urinary tract infection. DIAGNOSIS These tests will help your health care provider understand your problem: A thorough history and physical examination. A urination history, with the number of times you urinate, the amounts of urine, the strength of the urine stream, and the feeling of emptiness or fullness after urinating. A postvoid bladder scan that measures any amount of urine that may remain in your bladder after you finish urinating. Digital rectal exam. In a rectal exam, your health care provider checks your prostate by putting a gloved, lubricated finger into your rectum to feel the back of your prostate gland. This exam de tects the size of your gland and abnormal lumps or growths. Exam of your urine (urinalysis). Prostate specific antigen (PSA) screening. This is a blood test used to screen for prostate cancer. Rectal ultrasonography. This test uses sound waves to electronically produce a picture of your prostate gland. TREATMENT Once symptoms begin, your health care provider will monitor your condition. Of the men with this condition, one third will have symptoms that stabilize, one third will have symptoms that improve, and on e third will have symptoms that progress in the first year. Mild symptoms may not need treatment. Simple observation and yearly exams may be all that is required. Medicines and surgery are options for more severe problems. Your health care provider can help you make an informed decision for what is best. Two classes of medicines are available for relief of prostate symptoms: Medicines that shrink the prostate. This helps relieve symptoms. These medicines take time to work, and it may be months before any improvement is seen. Uncommon side effects include problems with sexual function. Medicines to relax the muscle of the prostate. This also relieves the obstruction by reducing any compression on the urethra.This group of medicines work much faster than those that reduce the size of the prostate gland. Usually, one can experience improvement in days to weeks.. Side effects can include dizziness, fatigue, lightheadedness, and retrograde ejaculation (diminished volume of ejaculate). Several types of surgical treatments are available for relief of prostate symptoms: Transurethral resection of the prostate (TURP)In this treatment, an instrument is inserted through opening at the tip of the penis. It is used to cut away pieces of the inner core of the prost ate. The pieces are removed through the same opening of the penis. This removes the obstruction and helps get rid of the symptoms. Transurethral incision (TUIP)In this procedure, small cuts are made in the prostate. This lessens the prostates pressure on the urethra. Transurethral microwave thermotherapy (TUMT)This procedure uses microwaves to create heat. The heat destroys and removes a small amount of prostate tissue. Transurethral needle ablation (TUNA)This is a procedure that uses radio frequencies to do the same as TUMT. Interstitial laser coagulation (ILC)This is a procedure that uses a laser to do the same as TUMT and TUNA. Transurethral electrovaporization (TUVP)This is a procedure that uses electrodes to do the same as the procedures listed above. SEEK MEDICAL CARE IF: You develop a fever. There is unexplained back pain. Symptoms are not helped by medicines prescribed. You develop side effects from the medicine you are taking. Your urine becomes very dark or has a bad smell. Your lower abdomen becomes distended and you have difficulty passing your urine. SEEK IMMEDIATE MEDICAL CARE IF: You are suddenly unable to urinate. This is an emergency. You should be seen immediately. There are large amounts of blood or clots in the urine. Your urinary problems become unmanageable. You develop lightheadedness, severe dizziness, or you feel faint. You develop moderate to severe low back or flank pain. You develop chills or fever. This information is not intended to replace advice given to you by your health care provider. Make sure you discuss any questions you have with your health care provider. Document Released: 02/06/2006 Document Revised: 02/11/2014 Document Reviewed: 08/22/2013 [facility] Patient Information 2015 [employer]. No follow up information was provided. Extracted from: Title: Office Visit Note Author: Kamran Luna MD Date: 05/01/15 Assessment/Plan Atrial fibrillation and flutter Stable and controlled ventricular response. Ordered: Office Visit Level 4 Est 57125 BPH (benign prostatic hypertrophy) with prostatism continue with the current medications. Ordered: Office Visit Level 4 Est 84634 CAD (coronary artery disease) No change in treatment. Ordered: Office Visit Level 4 Est 06908 Hypertension Stable. I feel that the patient is not homebound. Ordered: Office Visit Level 4 Est 68738
--- OUTSIDE RECORDS SUMMARY | 2016-11-16 12:43 | External Medical Summary | Continuity of Care Document ---
:1930 Author Organization [facility] Allergies Active Description Code Type Severity Reaction Onset Reported/ Identified Relationship Clinical to Patient Status Yes No Known NKMA N/A N/A 05/28/2014 Medication Allergies Yes No Known No Drug Unknown N/A 10/06/2014 Allergies Known Aller Aller gy gies Yes No Known No Drug Unknown N/A 10/06/2014 Allergies Known Aller Aller gy gies Medications Problems Date Dx Attending Type Code Diagnosis Diagnosed By Coded 10/02/2014 Carlos Moody MD, A V72.81 [facility] 10/27/2015 Caleb, Final I10 Essential (primary) Amy Camarena hypertension 10/27/2015 Caleb, Final I48.91 Unspecified atrial Amy Camarena fibrillation Procedures Code Description Performed By Performed On DX Carlos Moody MD, [facility] 10/06/2014 88.72 ULTRASOUND-HEART 09/24/2015 43240 Office or other outpatient visit for the evaluation and management of an established patient, which requires at least 2 of these 3 ferro components: A detailed history; A detailed examination; Medical d 10/27/2015 41516 Office or other outpatient visit for the evaluation and management of an established patient, which requires at least 2 of these 3 ferro components: An expanded problem focused history; An expanded prob Encounters ACCT No. Visit Discharge Status Pt. Type Provider Facility Loc./Unit Complaint Date/Time [id number] 10/06/2014 10/07/2014 DIS Outpatien Carlos BerriosOPRA 70 05:05:00 13:25:00 shonna PANDA [facility] [id number] 10/02/2014 10/02/2014 DIS Outpatien Carlos BerriosPOA 52 07:44:00 07:44:00 shonna PANDA [facility] [id number] 10/27/2015 10/27/2015 DIS Outpatikari Ellis [facility] gasping for 12 14:10:00 23:59:00 Amy kilpatrick [facility] [id number] 09/24/2015 09/24/2015 DIS Outpatien Jeremy, Via [facility] New FM NEEDS 83 10:41:00 23:59:00 t Kamran [facility] [id number] 05/01/2015 05/01/2015 DIS Outpatien Jeremy, Via [facility] New FM face to 49 13:00:00 23:59:00 t Kamran Bates face Clinic [id number] 10/22/2014 10/22/2014 DIS Outpatien Jeremy, Via [facility] New FM thyroid 89 13:45:00 23:59:00 t Kamran Bates elevated Clinic spots on lungs [id number] 09/17/2014 09/17/2014 DIS Outpatien Jeremy, Via [facility] New FM Face to 94 14:05:00 23:59:00 t Kamran Bates [facility] [id number] 03/15/2016 03/16/2016 DIS Outpatien Nidhi Cedeño.EPO 68 11:50:00 14:50:00 t , [facility]
--- OUTSIDE RECORDS SUMMARY | 2016-11-16 12:43 | External Medical Summary ---
:1930 Author Organization eClinical[employer] Care Team Providers Name Role Phone Antonio Moody Provider Role Unavailable Allergies No Known Allergies Problems Problem Type Condition ICD-9 Code Onset Dates Condition Status Problem Atrial fibrillation 427.31 Active Medications No Known Medications Results No Known Results Summary Purpose eClinicalWorks Submission
--- OUTSIDE RECORDS SUMMARY | 2016-11-16 12:43 | External Medical Summary | Referral Summary ---
:1930 Author Organization [facility] Address [address] [place] [address] [place] [phone] Care Team Providers Name Role Phone Kamran Luna Primary Care Physician Encounter VC Date(s): 09/24/15 - 09/24/15 [facility] [address] [place] [address] [place] Discharge Disposition: 01-Home or Self Care Attending Physician: Kamran Luna MD Admitting Physician: Kamran Luna MD Vital Signs Most recent to oldest [Reference Range]: 1 Peripheral Pulse Rate [60-100 bpm] 64 bpm (09/24/15 10:45 AM) Blood Pressure [90-140/60-90 mmHg] 126/74 mmHg (09/24/15 10:45 AM) SpO2 97 % (09/24/15 10:45 AM) Problem List Condition Effective Dates Status Health [...] caps, 0 Refill(s) Start Date: 06/11/14 [facility] Evaluate and Treat DX: [...] Former smoker; Type: Cigarettes Assessment and Plan No data available for this section
--- OUTSIDE RECORDS SUMMARY | 2016-11-16 12:43 | External Medical Summary | Referral Summary ---
:1930 Author Organization [facility] Address [address] [place] [address] [place] [address] Care Team Providers Name Role Phone Kamran Luna Primary Care Physician Encounter VC Date(s): 10/22/14 - 10/22/14 [facility] [address] [place] [address] [place] Discharge Diagnosis: Hypothyroidism Discharge Disposition: 01-Home or Self Care Attending Physician: Kamran Luna MD Admitting Physician: Kamran Luna MD Vital Signs Most recent to oldest [Reference Range]: 1 Blood Pressure [90-140/60-90 mmHg] 134/90 mmHg (10/22/14 1:57 PM) Problem List Condition Effective Dates [...] caps, 0 Refill(s) Start Date: 06/11/14 [facility], [facility]uate and Treat [...] Visit Note Author: Kamran Luna MD Date: 10/22/14 Assessment/Plan Atrial fibrillation and flutter Converted to normal sinus rhythm. Ordered: Office Visit Level 3 Est 28466 CAD (coronary artery disease) calcified coronary arteries Ordered: Office Visit Level 3 Est 99490 Chronic obstructive pulmonary disease (COPD) nodular lesion in the right lung and will repeat a CT of the lungs in 6 months. Ordered: Office Visit Level 3 Est 12274 Hypertension Ordered: Office Visit Level 3 Est 54921 Hypothyroidism repeat the thyroid test. Ordered: Office Visit Level 3 Est 88171 Incidental pulmonary nodule Ordered: Office Visit Level 3 Est 03636
--- OUTSIDE RECORDS SUMMARY | 2016-11-16 12:43 | External Medical Summary ---
:1930 Author Organization eClinicalWorks Care Team Providers Name Role Phone HeidyAntonio Provider Role Unavailable Allergies, Adverse Reactions, Alerts Substance Reaction Event Type N.K.D.A. Info Not Available Non Drug Allergy Problems Problem Type Condition ICD-9 Code Onset Dates Condition Status Assessment Atrial flutter 427.32 Active Assessment High Risk Med V58.69 Active Assessment Atrial fibrillation 427.31 Active Assessment Chronic Anticoagulation V58.61 Active Medications Medication Code Code Instructions Start End Date Status Dosage System Date Losartan NDC 91973-64 100 MG Orally 1 tablet Potassium 25-22 Once a day Pradaxa NDC 59299-25 150 MG Orally 1 capsule 35-54 Twice a day Tamsulosin HCl NDC 42104-47 0.4 MG Orally 1 capsule 38-01 Once a day 30 minutes after the same meal each day Finasteride NDC 16308-74 5 MG Orally Once 1 tablet 55-01 a day Amiodarone HCl NDC 06713-28 200 MG Orally Sep 23, 1 tablet 33-06 Once a day 2014 Simvastatin NDC 95463-09 80 MG Orally 1/2 tablet 56-10 Once a day Atenolol NDC 88340-80 50 MG Orally 1 tablet 52-01 Once a day Procedures Procedure Coding System Code Date Office Visit, New Pt., Level 4 CPT-4 34133 Sep 23, 2014 ELECTROCARDIOGRAM, COMPLETE CPT-4 54579 Sep 23, 2014 Vital Signs Date/Time: Sep 23, 2014 BMI 31.62 Index Weight 208 lbs Height 68 in Cardiac Monitoring Heart Rate 108 /min Oximetry 92% % Blood Pressure Diastolic 70 mm Hg Blood Pressure Systolic 112 mm Hg Results Name Result Date Reference Range Unit Abnormality Flag Atria ECG Summary Purpose eClinicalWorks Submission
--- OUTSIDE RECORDS SUMMARY | 2016-11-16 12:43 | External Medical Summary ---
:1930 Author Organization eClinicalWorks Care Team Providers Name Role Phone Antonio Moody Provider Role Unavailable Allergies, Adverse Reactions, Alerts Substance Reaction Event Type N.K.D.A. Info Not Available Non Drug Allergy Problems Problem Type Condition Code Onset Dates Condition Status Problem High risk medication use Z79.899 Active Problem Chronic anticoagulation Z79.01 Active Problem Paroxysmal atrial fibrillation I48.0 Active Assessment High risk medication use Z79.899 Active Assessment Chronic anticoagulation Z79.01 Active Problem Atrial fibrillation 427.31 Active Assessment Paroxysmal atrial fibrillation I48.0 Active Medications Medication Code Code Instructions Start End Date Status Dosage System Date Simvastatin NDC 46624-99 80 MG Orally 1/2 tablet 56-10 Once a day Tamsulosin HCl NDC 14610-76 0.4 MG Orally 1 capsule 38-01 Once a day 30 minutes after the same meal each day Atenolol NDC 57712-45 50 MG Orally 1 tablet 52-01 Once a day Pradaxa NDC 97796-24 150 MG Orally 1 capsule 35-54 Twice a day Amiodarone HCl NDC 22723-40 200 MG Orally 1 tablet 33-06 Once a day Losartan NDC 20070-09 100 MG Orally 1 tablet Potassium 25-22 Once a day Finasteride NDC 46436-44 5 MG Orally Once 1 tablet 55-01 a day Procedures Procedure Coding System Code Date Office Visit, Est Pt., Level 4 CPT-4 65762 June 04, 2015 ELECTROCARDIOGRAM, COMPLETE CPT-4 58254 June 04, 2015 Vital Signs Date/Time: June 04, 2015 BMI 31.62 Index Weight 208 lbs Height 68 in Cardiac Monitoring Heart Rate 64 /min Oximetry 95 % Blood Pressure Diastolic 94 mm Hg Blood Pressure Systolic 162 mm Hg Results Name Result Date Reference Range Unit Abnormality Flag AtriaECW Summary Purpose eClinicalWorks Submission
--- OUTSIDE RECORDS SUMMARY | 2016-11-16 12:43 | External Medical Summary | Referral Summary ---
:1930 Author Organization [facility] Address [address] [place] [address] [place] [phone] Care Team Providers Name Role Phone Kamran Luna Primary Care Physician Encounter VC Date(s): 09/17/14 - 09/17/14 [facility] [address] [place] [address] [place] Discharge Disposition: 01-Home or Self Care Attending Physician: Kamran Luna MD Admitting Physician: Kamran Luna MD Vital Signs Most recent to oldest [Reference Range]: 1 Blood Pressure [90-140/60-90 mmHg] 124/84 mmHg (09/17/14 2:14 PM) Problem List Condition Effective Dates Status [...] Patient Education Author: Kamran Luna MD Date: 09/21/14 Family Medicine Cardiac Ablation Cardiac ablation is [...] Ablation is done for people who: Have Mhwgp-Huqydkumj-Metlu syndrome. Have other fast heart rhythms (tachycardia). Have taken medicines for an abnormal heart rhythm (arrhythmia) that resulted in: No success. Side effects. May have a high-risk heartbeat that could result in . LET YOUR HEALTH CARE PROVIDER KNOW ABOUT: Any allergies you have or any previous reactions you have had to X-ray dye , food (such as seafood), medicine, or tape. All medicines you are taking, including vitamins, herbs, eye drops, creams , and eeyo-uie-inxqflp medicines. Previous problems you or members of your family have had with the use of anesthetics. Any blood disorders you have. Previous surgeries or procedures (such as a kidney transplant) you have had. Medical conditions you have (such as kidney failure). RISKS AND COMPLICATIONS Generally, cardiac ablation is a safe procedure. However, as with any procedure , complications can occur. Possible risks and complications include: Increased risk of cancer. Depending on [...] including insulin, ask how you are to rosanne e it and if there are any special [...] will be placed on the insertion site. An ablation procedure can take 16 hours to complete. AFTER THE PROCEDURE After the procedure, you will be taken to a recovery area where your vital signs (blood pressure, heart rate, and breathing) will be monitored. The insertion site will also be monitored for bleeding. You will need to lie still for 46 hours. This is to ensure you do not bleed from the catheter insertion site. If your blood pressure and heart rate are stable and no bleeding occurs at the insertion site, you may go home the same day as your procedure. If complications occur or your health care provider feels you should be watched, you may need to stay in the hospital overnight. Document Released: 06/25/2009 Document Revised: 10/09/2013 Document Reviewed: 07/01/2013 ExitCare Patient Information 2015 [place]. This information is not intended to replace advice given to you by your health care provider. Make sure you discuss any questions you have with your health care provider. Atrial Fibrillation Atrial fibrillation is a type [...] problems, especially if the thyroid is overactive (hyperthyroidism ). Caffeine, excessive alcohol use, and use of [...] pressure (hypertension). Obesity. Other arrhythmias. Increased age. SYMPTOMS A feeling that your heart is [...] heart: Electrical cardioversion. During electrical cardioversion, a controlled, low-energy shock is delivered to the heart through your skin. If you have chest pain, very low blood pressure, or sudden hea rt failure, this procedure may need to be done as an emergency. Catheter ablation. During this procedure, heart tissues that send the signals that cause atrial fibrillation are destroyed. Maze or minimaze procedure. During this surgery, thin lines of heart tissue that carry the abnormal signals are destroyed. The maze procedure is an open-heart surgery. The minimaze procedure is a m inimally invasive surgery. This means that small cuts are made to access the heart instead of a large opening. Pulmonary venous isolation. During this surgery, tissue around the veins that carry blood from the lungs (pulmonary veins) is destroyed. This tissue is thought to carry the abnormal signals. HOME CARE INSTRUCTIONS Only take medicines that your health care provider approves, and take them as directed. Some medicines can make atrial fibrillation worse or recur. If blood thinners were prescribed by your health care provider, take them exactly as directed. Too much blood-thinning medicine can cause bleeding. If you take too little, you will not have the nee ded protection against stroke and other problems. Perform [...] your health care provider. Keep all follow-up appointments with your health care provider. PREVENTION The following substances can cause atrial [...] are not doing well or get worse. Document Released: 02/06/2006 Document Revised: 02/11/2014 Document Reviewed: 03/19/2013 ExitCare Patient Information 2015 [place]. This information is not intended to replace advice given to you by your health care provider. Make sure you discuss any questions you have with your health care provider. No follow up information was provided. Extracted from: Title: Office Visit Note Author: Kamran Luna MD Date: 09/17/14 Assessment/Plan Atrial fibrillation and flutter Continue with the current treatment. The Home [facility] Form was completed. Ordered: Office Visit Level 4 Est 16337 Hypertension Ordered: Office Visit Level 4 Est 13353
--- NOTE | 2016-11-16 13:09 | XRay Report ---
INDICATION: dyspnea PROCEDURE: CHEST 2-VIEWS UPRIGHT (PA & LAT) Encounter: Initial COMPARISON: June 10, 2010 FINDINGS: Hazy airspace and interstitial reticular opacity in both lungs with a central predominance. No focal lobar consolidation, gross pleural effusion or pneumothorax. Heart size and mediastinal contours are stable. Pulmonary vascularity is somewhat indistinct. Impression: Findings most consistent with moderate pulmonary edema. .
[2016-11-16] MEDS: FUROSEMIDE 40 MG/4 ML INJECTION IVP SCH ×2 (13:41→17:35)
[2016-11-16] MEDS: SALINE FLUSH 10ml SYRINGE IVF PRN (13:41)
[2016-11-16 14:32] VITALS: BMI 29.4
--- NOTE | 2016-11-16 14:47 | History & Physical Report ---
<Alesia Jimenez V - Last Filed: 11/16/16 14:39> History of Present Illness Date: 11/16/16 Chief complaint: hypoxia, pulmonary edema HPI: Patient is an 86-year-old male is been under the primary care of Dr. Schroeder. He is under cardiology care doctor Jacobo and has a known history of atrial fibrillation and coronary artery disease. Is reported by his daughter that he has had progressive dyspnea over the past 3 weeks. Today family member went to check patient at home checked his O2 sats found him to be 86% on room air. Due to this concern about him to the emergency room for further evaluation and treatment. Acute workup revealed pulmonary edema with acute respiratory failure and hypoxia. WBC count was normal at 10.5, hemoglobin 12.2, hematocrit 36.3, platelet count 273. Sodium and potassium are normal, renal functions elevated with a BUN of 30, creatinine 1.7. Total bilirubin 1.5. Troponin was negative, less than 0.012, proBNP 90775. Patient continued to have persistent hypoxia room air saturations 86% requiring 2 liters to maintain adequate saturations. Given these findings, accompanied with pulmonary edema found on chest x-ray. The hospitalist services were contacted and accepted patient for inpatient admission for further evaluation and treatment. Is expected that his stay will be greater than 2 overnights. Eloisa is a very pleasant 86-year-old gentleman who is seen while in the emergency room prior to admission. He is alert, oriented and pleasant. She does reside independently at home with his and family's help. He reports that over the past several weeks he has noticed increased shortness of breath that is worse when he reclines at night. He states that he is still able to push mow the yard, however, only make it approximately 3 rounds until he has to stop and catch his breath. We did discuss advanced directive He does verify he wants to be a full code. Review of Systems All systems PM: 10-point ROS was reviewed, no additional remarkable complaints except - Constitutional Constitutional: Present: fatigue - Cardiovascular Cardiovascular: Present: dyspnea on exertion, orthopnea - Respiratory Respiratory: Present: as per HPI PFSH Atrial fibrillation COPD Coronary artery disease Incidental Pulmonary nodules HTN BPH Hearing Loss Surgical History: Multiple cardiac ablations. Cardioversion- x3. Vasectomy. Cardiac catheterization-08/04/2014. At that time EF 40-45%. Family History: Father- Liver failure Mother- DM Brother- Prostrate Cancer - Social History Smoking status: Former smoker Substance use type: does not use Alcohol intake frequency: does not drink Current occupational status: retired Current occupation: formally worked in a [employer], concern for chronic lung damage Current residence: Apartment/Private Home Social history: PCP Dr Schroeder Cardiology- Dr Centeno Medications Home Medications Medication Instructions Recorded Confirmed Type Atenolol 50 mg PO AM #0 tab 07/21/14 11/16/16 History Finasteride 5 mg PO DAILY #0 tab 07/21/14 11/16/16 History Amlodipine [Norvasc] 5 mg PO DAILY 11/16/16 11/16/16 History Apixaban [Eliquis] 2.5 mg PO DAILY 11/16/16 11/16/16 History Atenolol [Tenormin] 25 mg PO PM 11/16/16 11/16/16 History Pravastatin Sodium 40 mg PO HS 11/16/16 11/16/16 History Allergies Allergy/AdvReac Type Severity Reaction Status Date / Time No Known Allergies Allergy Verified 11/16/16 14:58 Exam Vital Signs: Temperature 98.6 F 11/16/16 11:58 Pulse Rate 83 11/16/16 11:58 Respiratory Rate 22 11/16/16 11:58 Blood Pressure 126/87 11/16/16 11:58 Pulse Oximetry 86 L 11/16/16 11:58 Telemetry Rhythm: Sinus Rhythm Height/Weight/BMI: Height 1.75 m Weight 90.4 kg Body Mass Index 29.4 - Constitutional Present: no acute distress, well nourished, well developed - Routine HEENT Exam Eye: Present: EOMI ENT: Present: mucous membranes moist, dentition normal - Routine Respiratory Exam Present: CTA bilaterally. Absent: wheezes - Routine Cardiovascular Exam Present: RRR, S1, S2. Absent: murmur - Routine Abdominal Exam Present: soft, normoactive bowel sounds, non distended. Absent: tenderness - Routine Extremities Exam Present: pulses intact, normal capillary refill - Routine Skin Exam Present: intact, dry, warm - Routine Neurological Exam Present: alert, oriented X3, CN II-XII intact - Routine Psychiatric Exam Present: normal affect, cooperative Results - Labs CBC & Chem 7: 11/16/16 12:21 11/16/16 12:21 Assessment and Plan (1) Congestive heart failure Current visit: Yes Status: Acute (2) Pulmonary edema Current visit: Yes Status: Acute (3) Acute respiratory failure with hypoxemia Current visit: Yes Status: Acute DVT Prophylaxis: Eliquis Resuscitation Status: Full Code Assessment and Plan: Impression CHF Respiratory failure with hypoxia Pulmonary edema Atrial fibrillation COPD Hypertension Dyslipidemia BPH Hearing loss Plan Admit patient to inpatient status under the care of Dr. Do for acute respiratory failure with hypoxia and pulmonary edema Room air saturations 86%, patient requiring 2 liters of oxygen to maintain adequate saturation. Patient is symptomatic with exertion as well as orthopnea. He was given Lasix 40 mg IV in the emergency room. Will continue with aggressive diuresis Lasix 40 every 8 hours. Will monitor daily weights and urinary output. Obtain an echocardiogram for further cardiac evaluation and consultation placed to Dr. Centeno for further recommendations. Will monitor on cardiac telemetry, on admission. Patient is in sinus rhythm. Obtain serial troponins 3 to rule out cardiac ischemia. Continue chronic anticoagulation, Eliquis 2.5 milligrams daily. This dose did decrease to daily starting today. Continue with normal antihypertensives including atenolol, Norvasc Once patient is medically stable. Will consult PT and OT for evaluation of strength and endurance. In 10 used to reside independently and is active currently mows the lawn Will recheck CBC and BMP tomorrow morning to follow blood counts, renal function , electro-lytes. She does request to be a full code and this order is written Further orders and plan of care discussed with attending, Dr. Do. At time of discharge medical care is to return to primary care provider, Dr. Schroeder Hospital Course Summary Disclaimer: The visit summary below is not to be considered part of the above Progress Note. Hospital Course: 11/16/16 - initial admission Impression CHF Respiratory failure with hypoxia Pulmonary edema Atrial fibrillation COPD Hypertension Dyslipidemia BPH Hearing loss Plan Admit patient to inpatient status under the care of Dr. Do for acute respiratory failure with hypoxia and pulmonary edema Room air saturations 86%, patient requiring 2 liters of oxygen to maintain adequate saturation. Patient is symptomatic with exertion as well as orthopnea. He was given Lasix 40 mg IV in the emergency room. Will continue with aggressive diuresis Lasix 40 every 8 hours. Will monitor daily weights and urinary output. Obtain an echocardiogram for further cardiac evaluation and consultation placed to Dr. Centeno for further recommendations. Will monitor on cardiac telemetry, on admission. Patient is in sinus rhythm. Obtain serial troponins 3 to rule out cardiac ischemia. Continue chronic anticoagulation, Eliquis 2.5 milligrams daily. This dose did decrease to daily starting today. Continue with normal antihypertensives including atenolol, Norvasc Once patient is medically stable. Will consult PT and OT for evaluation of strength and endurance. In 10 used to reside independently and is active currently mows the lawn Will recheck CBC and BMP tomorrow morning to follow blood counts, renal function , electro-lytes. She does request to be a full code and this order is written Further orders and plan of care discussed with attending, Dr. Do. At time of discharge medical care is to return to primary care provider, Dr. Schroeder <Konstantin Do - Last Filed: 11/16/16 18:26> History of Present Illness Date: 11/16/16 [facility] Patient Stated Medical History Dementia Yes: on some paperwork Cataracts Yes: both eyes Hearing Loss Yes: both ears Cardiac Arrhythmia Yes: Hx of AFib- no longer Hypertension Yes Pneumonia Yes: as a kid Hx Benign Prostatic Yes Hyperplasia Exam Vital Signs: Temperature 95.6 F L 11/16/16 14:06 Pulse Rate 78 11/16/16 16:01 Respiratory Rate 24 11/16/16 14:16 Blood Pressure 144/88 H 11/16/16 14:16 Pulse Oximetry 95 11/16/16 14:16 Height/Weight/BMI: Height 1.75 m Weight 90.4 kg Body Mass Index 29.4 Results - Labs CBC & Chem 7: 11/16/16 12:21 11/16/16 12:21 Assessment and Plan (1) Congestive heart failure Problem details: Diastolic Current visit: Yes Status: Acute (2) Pulmonary edema Current visit: Yes Status: Acute (3) Acute respiratory failure with hypoxemia Current visit: Yes Status: Acute Assessment and Plan: Impression CHF - Acute on chronic diastolic heart failure Respiratory failure with hypoxia Pulmonary edema Atrial fibrillation Anticoagulation with Eliquis COPD Pulmonary Hypertension Hypertension Dyslipidemia Stage III CKD BPH Hearing loss Overweight with BMI 29.4 Have independently interviewed and examined pt. Chart reviewed. Case discussed with ED provider, Dr Centeno, and my CHIP [employer]. Care plan developed with my supervision; agree with above. Breathing has been short 'all summer,' but noticing more SOA over the past 3 week. Winded with activities. Harder to lye flat to sleep. Does not occasional cough and chest congestion. Not feeling chest pressure, pain, heaviness, or palpitations. Denies increasing LE edema. Appetite stable. Bowels stable. Urinating well. Granddaughter came by this morning to check on him. Found RA O2 'very low.' Patient presents to ED for evaluation. 86% on RA (does not use O2 at home). CXR showing pulmonary edema. Patient place in inpatient admission for treatment of his pulmonary edema and acute respiratory failure with hypoxia. Lungs: decreased breath sounds bilaterally. Bibasilar crackles. No wheezes. Breaths comfortably with O2. CV: regular AB; soft nt/nd +BS MSE: awake alert appropriate Plan: Inpatient admission for treatment of his pulmonary edema causing acute respiratory failure-anticipate greater than 2 midnights of care needed. Supplemental O2 for respiratory support. IVF Lasix to help motivate fluid- monitor electrolytes and renal status. ECHO cardiogram due to pulmonary edema. Consult with Dr Centeno for cardiac evaluation. Continue Eliquis due to afib - will also provide DVT prevention. Hospital Course Summary Disclaimer: The visit summary below is not to be considered part of the above Progress Note.
--- NOTE | 2016-11-16 16:53 | Cardiology Consult Note ---
History of Present Illness Consult date: 11/16/16 <Vee Moody - 11/16/16 17:12> Requesting physician: Konstantin Do <Vee Moody - 11/16/16 17:12> Consult reason: congestive heart failure <Vee Moody - 11/16/16 17:12> Chief complaint: Hypoxia <Vee Moody - 11/16/16 17:12> History of present illness: Eloisa is an 86-year-old male who is known to Dr. Montoya with a history of paroxysmal atrial fibrillation, hypertrophic cardiomyopathy, CAD, non- rheumatic mitral valve insufficiency, pulmonary hypertension, HTN and HLD. He was last seen in the clinic on 08/10/16 and was scheduled for follow up in 6 months. His last Stress test was done 08/03/16 and showed an EF of 60% and no ischemia. Last echo done 01/27/16 showed EF 57%, mild LVH, PAP 57mmHg. He has reportedly had progressive dyspnea over the past 3 weeks. Today, family member checked his O2 sats found him to be 86% on room air. Due to this he was brought to the ED for further evaluation. Acute workup revealed pulmonary edema with acute respiratory failure and hypoxia. WBC count was normal at 10.5, hemoglobin 12.2, hematocrit 36.3, platelet count 273. Sodium and potassium are normal, renal functions elevated with a BUN of 30, creatinine 1.7. Total bilirubin 1.5. Troponin was negative, less than 0.012, proBNP 75357. Patient continued to have persistent hypoxia room air saturations 86% requiring 2 liters to maintain adequate saturations. Given these findings, accompanied with pulmonary edema found on chest x-ray, the hospitalist services accepted patient for inpatient admission for further evaluation and treatment. Is expected that his stay will be greater than 2 overnights. Eloisa is seen in his room on Medical, he is alert, oriented and pleasant. He reports that over the past several weeks he has noticed increased shortness of breath that is worse when he reclines at night. He states that he is still able to push mow the yard, however, only make it approximately 3 rounds until he has to stop and catch his breath. He denies recent illness, fever, chills, sore throat, cough, N/V/D, dysuria. <Vee Moody 11/16/16 17:12> Review of Systems - Constitutional Constitutional: Present: fatigue. Absent: chills, fever(s), weakness < Vee Moody 11/16/16 17:12> - EENMT Eyes: Absent: change in vision <Vee Moody 11/16/16 17:12> Balance: Absent: vertigo <Vee Moody 11/16/16 17:12> Mouth/Throat: Absent: sore throat, scratchy throat <Vee Moody 11/16/16 17:12> - Cardiovascular Cardiovascular: Present: dyspnea on exertion, orthopnea. Absent: chest pain, palpitations, syncope, edema <Vee Moody 11/16/16 17:12> Vascular: Absent: pedal edema <Vee Moody 11/16/16 17:12> - Respiratory Respiratory: Present: dyspnea on exertion. Absent: cough <Vee Moody 17:12> - Gastrointestinal Gastrointestinal: Absent: diarrhea, nausea, vomiting <Vee Moody 17:12> - Genitourinary Genitourinary: Absent: dysuria <Vee Moody 11/16/16 17:12> - Integumentary/Breasts Integumentary: Absent: rash <Vee Moody 11/16/16 17:12> - Neurological Neurological: Absent: dizziness <Vee Moody 11/16/16 17:12> - Endocrine Endocrine: Absent: palpitations <Vee Moody 11/16/16 17:12> [facility] Patient Stated Medical History Dementia Yes: on some paperwork Cataracts Yes: both eyes Hearing Loss Yes: both ears Cardiac Arrhythmia Yes: Hx of AFib- no longer Hypertension Yes Pneumonia Yes: as a kid Hx Benign Prostatic Yes Hyperplasia <Jose F Centeno - 11/17/16 13:28> Patient Stated Medical History CAD HLD Pulmonary hypertension 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 Cardioversion- x3. Vasectomy. Cardiac catheterization-08/04/2014. At that time EF 40-45%. 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) <Vee Moody 11/16/16 17:12> Current residence: Apartment/Private Home <Vee Moody - 11/16/16 17:12> Medications Home Medications Medication Instructions Recorded Confirmed Type Atenolol 50 mg PO AM #0 tab 07/21/14 11/16/16 History Finasteride 5 mg PO DAILY #0 tab 07/21/14 11/16/16 History Amlodipine [Norvasc] 5 mg PO DAILY 11/16/16 11/16/16 History Apixaban [Eliquis] 2.5 mg PO DAILY 11/16/16 11/16/16 History Atenolol [Tenormin] 25 mg PO PM 11/16/16 11/16/16 History Pravastatin Sodium 40 mg PO HS 11/16/16 11/16/16 History <Jose F Centeno - 11/17/16 13:28> Allergies Allergy/AdvReac Type Severity Reaction Status Date / Time No Known Allergies Allergy Verified 11/16/16 14:58 <Jose F Centeno - 11/17/16 13:28> Exam Vital signs: Temperature 95.5 F L 11/17/16 07:40 Pulse Rate 78 11/17/16 07:50 Respiratory Rate 20 11/17/16 07:40 Blood Pressure 99/68 11/17/16 07:40 Pulse Oximetry 93 11/17/16 09:12 <Jose F Centeno - 11/17/16 13:28> Temperature 95.6 F L 11/16/16 14:06 Pulse Rate 77 11/16/16 14:16 Respiratory Rate 24 11/16/16 14:16 Blood Pressure 144/88 H 11/16/16 14:16 Pulse Oximetry 95 11/16/16 14:16 <Vee Moody 11/16/16 17:12> - Constitutional no acute distress, well nourished, well developed, cooperative <Vee Moody 11/16/16 17:12> - Routine HEENT Exam Head: Present: normocephalic <Vee Moody 11/16/16 17:12> ENT: Present: mucous membranes moist <Vee Moody 11/16/16 17:12> - Routine Neck Exam Present: JVD. Absent: carotid bruit <Vee Moody 11/16/16 17:12> - Routine Chest/Breast/Axilla Exam Chest wall: Absent: tenderness <Vee Moody 11/16/16 17:12> - Routine Respiratory Exam Present: CTA bilaterally. Absent: rales, wheezes <Vee Moody 11/16/16 17:12> - Routine Cardiovascular Exam Present: RRR, no murmur, JVD <Vee Moody 11/16/16 17:12> - Routine Abdominal Exam Present: soft, normoactive bowel sounds <HeidyVee ledesma 11/16/16 17:12> - Routine Extremities Exam Present: no edema <Vee Moody 11/16/16 17:12> - Routine Skin Exam Present: intact, dry, warm <Vee Moody 11/16/16 17:12> - Routine Neurological Exam Present: alert, oriented X3 <Vee Moody 11/16/16 17:12> - Routine Psychiatric Exam Present: normal affect, normal thought process <Vee Moody 11/16/16 17: 12> Results 11/17/16 04:21 11/17/16 04:21 <Jose F Centeno - 11/17/16 13:28> Cardiac Enzymes 11/16/16 11/17/16 Range/Units 18:38 04:21 Troponin I < 0.012 < 0.012 (0-0.12) ng/ml CBC 11/17/16 Range/Units 04:21 WBC 9.9 (4.5-11.0) T/MM3 RBC 3.98 L (4.50-5.90) M/MM3 Hgb 12.1 L (13.5-17.5) GM/DL Hct 36.9 L (41-53) % Plt Count 258 (130-400) T/MM3 Neut # (Auto) 6.9 (1.8-7.7) T/MM3 Lymph # (Auto) 1.3 (1-4.8) T/MM3 [place] # (Auto) 1.1 H (0-0.8) T/MM3 Eos # (Auto) 0.4 (0-0.5) T/MM3 Baso # (Auto) 0.0 (0-0.2) T/MM3 Comprehensive Metabolic Panel 11/17/16 Range/Units 04:21 Sodium 139 (134-144) MEQ/L Potassium 3.6 D (3.6-5) MEQ/L Chloride 98 (98-107) MEQ/L Carbon Dioxide 31 H (22-30) MEQ/L BUN 33.0 H (9-20) MG/DL Creatinine 1.9 H D (0.8-1.5) MG/DL Glucose 101 (75-110) MG/DL Calcium 9.1 (8.4-10.2) MG/DL Intake and Output 11/16/16 11/17/16 11/17/16 22:59 06:59 14:59 Intake Total 200 / 200 600 / 600 240 / 240 Output Total 200 / 200 Balance 200 / 200 599 / 599 40 / 40 Intake: Oral 200 / 200 600 / 600 240 / 240 Output: Urine 200 / 200 Other: Urine Appearance Clear Urine Color Dark Yellow # Voids 1 1 <Angelia Centenosein - 11/17/16 13:28> Intake and Output 11/16/16 11/16/16 11/16/16 06:59 14:59 22:59 Other: Weight 199 lb 4.766 oz Patient Weight 11/17/16 06:59 Weight 199 lb 4.766 oz Abnormal Lab Results 11/16/16 11/16/16 12:21 12:21 WBC 10.5 RBC 3.90 L Hgb 12.2 L Hct 36.3 L MCV 93.1 MCH 31.3 MCHC 33.6 RDW Std Deviation 47.2 Plt Count 273 MPV 10.5 Immature Gran % (Auto) 1.1 H Neut % (Auto) 76.4 H Lymph % (Auto) 9.3 L [place] % (Auto) 10.8 H Eos % (Auto) 2.1 Baso % (Auto) 0.3 Neut # (Auto) 8.0 H Lymph # (Auto) 1.0 [place] # (Auto) 1.1 H Eos # (Auto) 0.2 Baso # (Auto) 0.0 Abs Immat Gran (auto) 0.11 H Turbidity < 20 Sodium 138 Potassium 4.7 Chloride 102 Carbon Dioxide 27 Anion Gap 9 BUN 30.0 H Creatinine 1.7 H GFR Calculation 38 BUN/Creatinine Ratio 18 Glucose 104 Calculated Osmolality 272 Calcium 8.9 Total Bilirubin 1.50 H Icterus Index < 2 AST 22 ALT 35 Alkaline Phosphatase 92 Troponin I < 0.012 B-Natriuretic Peptide 3880 H Total Protein 7.6 Albumin 3.8 Globulin 3.8 H Albumin/Globulin Ratio 1.0 L Specimen Hemolysis < 15 <Vee Moody - 11/16/16 17:12> - Imaging and Cardiology Echo: report reviewed <Vee Moody - 11/16/16 17:12> EKG results: image reviewed <Vee Moody - 11/16/16 17:12> Imaging & Cardiology Narrative: Date of Exam: 11/16/16 Ordering Provider: Sophia Jaramillo APRN Type of Exam(s): XR chest 2V Reason for Exam(s): dyspnea INDICATION: dyspnea PROCEDURE: CHEST 2-VIEWS UPRIGHT (PA & LAT) Encounter: Initial COMPARISON: June 10, 2010 FINDINGS: Hazy airspace and interstitial reticular opacity in both lungs with a central predominance. No focal lobar consolidation, gross pleural effusion or pneumothorax. Heart size and mediastinal contours are stable. Pulmonary vascularity is somewhat indistinct. Impression: Findings most consistent with moderate pulmonary edema. 11/16/16 16:58 <Vee Moody - 11/16/16 17:12> EKG interpretations - Dysrhythmias Sinus rhythms and dysrhythmias: sinus rhythm <Vee oMody Migue - 11/16/16 17:12> Assessment and Plan - Attestation Attestation Narrative: 11/17/16 13:28 Recommendation After examining the patient I agree with the above assessment. I am involved in the formulation of the patient's plan of care. <Jose F Centeno - 11/17/16 13:28> - Assessment and Plan (1) Congestive heart failure Problem details: Diastolic Current visit: Yes Status: Acute (2) Pulmonary edema Current visit: Yes Status: Acute (3) Acute respiratory failure with hypoxemia Current visit: Yes Status: Acute (4) Paroxysmal atrial fibrillation Current visit: Yes Status: Acute (5) Nonrheumatic mitral valve insufficiency Current visit: Yes Status: Acute (6) Chronic pulmonary hypertension Current visit: Yes Status: Acute (7) Essential (primary) hypertension Current visit: Yes Status: Acute (8) Mixed hyperlipidemia Current visit: Yes Status: Acute (9) Atherosclerotic heart disease of [place] coronary artery without angina pectoris Current visit: Yes Status: Acute <AníbaldaronAngeliaJose F - 11/17/16 13:28> (1) Congestive heart failure Problem details: Diastolic Current visit: Yes Status: Acute EF 60%. Has JVD, no edema or rales, not far from patient's baseline. Diurese with Lasix 40mg IV Q8H as ordered by hospitalist Follow renal and electrolytes (2) Pulmonary edema Current visit: Yes Status: Acute Findings most consistent with moderate pulmonary edema per chest X-ray report. Diurese with Lasix 40mg IV Q8H as ordered by hospitalist (3) Acute respiratory failure with hypoxemia Current visit: Yes Status: Acute (4) Paroxysmal atrial fibrillation Current visit: Yes Status: Acute Takes Amiodarone and Eliquis. Check TSH and Mag (5) Nonrheumatic mitral valve insufficiency Current visit: Yes Status: Acute unchanged per echo. routine monitoring (6) Chronic pulmonary hypertension Current visit: Yes Status: Acute Increased PAP per echo. routine monitoring (7) Essential (primary) hypertension Current visit: Yes Status: Acute well controlled on current therapy (8) Mixed hyperlipidemia Current visit: Yes Status: Acute Takes Pravastatin, PCP manages (9) Atherosclerotic heart disease of [place] coronary artery without angina pectoris Current visit: Yes Status: Acute Recent stress test stable, routine monitoring <Vee Moody - 11/17/16 12:12> Hospital Course Summary Disclaimer: The visit summary below is not to be considered part of the above Progress Note. <JacoboJose F - 11/17/16 13:28> The visit summary below is not to be considered part of the above Progress Note. <Vee Moody - 11/16/16 17:12> Hospital Course: 11/16/16 - initial admission Impression CHF Respiratory failure with hypoxia Pulmonary edema Atrial fibrillation COPD Hypertension Dyslipidemia BPH Hearing loss Plan Admit patient to inpatient status under the care of Dr. Do for acute respiratory failure with hypoxia and pulmonary edema Room air saturations 86%, patient requiring 2 liters of oxygen to maintain adequate saturation. Patient is symptomatic with exertion as well as orthopnea. He was given Lasix 40 mg IV in the emergency room. Will continue with aggressive diuresis Lasix 40 every 8 hours. Will monitor daily weights and urinary output. Obtain an echocardiogram for further cardiac evaluation and consultation placed to Dr. Centeno for further recommendations. Will monitor on cardiac telemetry, on admission. Patient is in sinus rhythm. Obtain serial troponins 3 to rule out cardiac ischemia. Continue chronic anticoagulation, Eliquis 2.5 milligrams daily. This dose did decrease to daily starting today. Continue with normal antihypertensives including atenolol, Norvasc Once patient is medically stable. Will consult PT and OT for evaluation of strength and endurance. In 10 used to reside independently and is active currently mows the lawn Will recheck CBC and BMP tomorrow morning to follow blood counts, renal function , electro-lytes. She does request to be a full code and this order is written Further orders and plan of care discussed with attending, Dr. Do. At time of discharge medical care is to return to primary care provider, Dr. Schroeder 11/16/16 Cardiology Diastolic CHF:EF 60%. Has JVD, no edema or rales, not far from patient's baseline. Diurese with Lasix 40mg IV Q8H as ordered by hospitalist Follow renal and electrolytes Pulmonary edema:Findings most consistent with moderate pulmonary edema per chest X-ray report. Diurese with Lasix 40mg IV Q8H as ordered by hospitalist Paroxysmal AFib: Takes Amiodarone and Eliquis. Check TSH and Mag Chronic pulmonary HTN: PAP increased per echo CAD:Recent stress test stable, routine monitoring Thank you for allowing us to participate in the care of this patient, we will follow with you. <Vee Moody - 11/17/16 12:18>
[2016-11-16] MEDS: ATENOLOL 50 MG TABLET PO SCH (20:21)
[2016-11-16] MEDS: PRAVASTATIN 40 MG TABLET PO SCH (20:21)
[2016-11-17] MEDS: FUROSEMIDE 40 MG/4 ML INJECTION IVP SCH ×2 (00:33→09:09)
[2016-11-17] MEDS: SALINE FLUSH 10ml SYRINGE IVF PRN ×3 (00:34→15:30)
[2016-11-17] MEDS ORDERED: AMLODIPINE 5 MG TABLET PO SCH (09:00)
[2016-11-17] MEDS: ATENOLOL 50 MG TABLET PO SCH ×2 (09:10→20:11)
[2016-11-17] MEDS: AMIODARONE 200 MG TABLET PO SCH (09:12)
[2016-11-17] MEDS: APIXABAN 5 MG TABLET PO SCH (09:12)
[2016-11-17] MEDS: FINASTERIDE 5 MG TABLET PO SCH (09:12)
--- NOTE | 2016-11-17 10:52 | Echocardiogram ---
DATE OF PROCEDURE November 16, [address] Konstantin Do This is a two-dimensional echo with spectral Doppler, color-flow and M-mode. It was obtained in a patient with atrial fibrillation, congestive heart failure and hypoxia. Left atrial dimension is mildly increased. Left ventricle end-diastolic dimension is normal. Left ventricle wall thickness is normal. LV systolic function is normal with ejection fraction of 67%. Right atrium is normal. Right ventricle is normal. Aortic root dimension is normal. Mitral valve annulus is calcified. Mitral valve leaflets are normal with [id number] mitral regurgitation. Aortic valve shows fibrocalcific changes with no stenosis. Fvvq-yz-gnooxjpf aortic insufficiency is present. Tricuspid valve shows moderate tricuspid regurgitation with ooxmqzlg-qw-[id number] pulmonary hypertension with estimated pulmonary artery systolic pressure of 65-70. Pulmonary valve shows mild pulmonary insufficiency. There is no pericardial effusion. IMPRESSION 1. Normal LV systolic function with ejection fraction of 67%. 2. Left atrial dilation. 3. Mitral annulus calcification with oeyx-su-uaqqcwme mitral regurgitation. 4. Aortic sclerosis with lluz-[id number] aortic insufficiency. 5. Moderate tricuspid regurgitation with [id number] pulmonary hypertension with estimated pulmonary artery systolic pressure of 65-70. 6. Mild pulmonary insufficiency. MTDD
--- NOTE | 2016-11-17 11:47 | Progress Note ---
<Alesia Jimenez V - Last Filed: 11/17/16 11:41> Subjective: Eloisa is seen this morning up in the chair, she states that he is feeling good and wants to go home to take care of his cat. He did require oxygen overnight at 2 liters, however, has been able to wean down to room air this morning at rest. Sats are maintaining 93-95%. He denies having any pain or GI concerns. Objective Vital signs: Temperature 95.5 F L 11/17/16 07:40 Pulse Rate 78 11/17/16 07:50 Respiratory Rate 20 11/17/16 07:40 Blood Pressure 99/68 11/17/16 07:40 Pulse Oximetry 93 11/17/16 09:12 Height/Weight/BMI: Height 1.75 m Weight 90.4 kg Body Mass Index 29.4 - Constitutional Present: well nourished, well developed - Routine HEENT Exam Eye: Present: EOMI ENT: Present: mucous membranes moist, dentition normal - Routine Respiratory Exam Present: CTA bilaterally. Absent: wheezes - Routine Cardiovascular Exam Present: RRR, S1, S2. Absent: murmur - Routine Abdominal Exam Present: soft, normoactive bowel sounds, non distended. Absent: tenderness - Routine Extremities Exam Present: no edema, full ROM, pulses intact, normal capillary refill - Routine Back/Spine/Pelvis Exam Back/Spine: Present: full ROM - Routine Skin Exam Present: intact, dry, warm - Routine Neurological Exam Present: alert, oriented X3, CN II-XII intact - Routine Lymphatic Exam Lymphatic: Absent: adenopathy - Routine Psychiatric Exam Present: normal affect, cooperative Results - Labs CBC & Chem 7: 11/17/16 04:21 11/17/16 04:21 Assessment and Plan (1) Congestive heart failure Problem details: Diastolic Current visit: Yes Status: Acute (2) Pulmonary edema Current visit: Yes Status: Acute (3) Acute respiratory failure with hypoxemia Current visit: Yes Status: Acute Assessment and Plan: Impression CHF - Acute on chronic diastolic heart failure Respiratory failure with hypoxia Pulmonary edema Atrial fibrillation Anticoagulation with Eliquis COPD Pulmonary Hypertension Hypertension Dyslipidemia Stage III CKD BPH Hearing loss Overweight with BMI 29.4 11/17- Plan Appreciate her Dolgic consultation by Dr. Centeno, echocardiogram performed yesterday revealed EF 67% with aortic sclerosis and mild to moderate aortic insufficiency, pulmonary hypertension At rest, patient is able to wean down to room air. Will have RT do an ambulatory oximetry to evaluate for hypoxia with exertion. Would like PT and OT to evaluate patient. He is independent and resides at home and is very active, continues to mow the lawn routinely. Continue with diureses- Lasix 40 milligrams every 8 hours. Ask nursing staff to weigh patient daily to monitor fluid as well as output. BMP evaluated, creatinine slightly up at 1.9, likely secondary to diureses. Will continue to follow. Case discussed with attending Dr Do Hospital Course Summary Disclaimer: The visit summary below is not to be considered part of the above Progress Note. Hospital Course: 11/16/16 - initial admission Impression CHF Respiratory failure with hypoxia Pulmonary edema Atrial fibrillation COPD Hypertension Dyslipidemia BPH Hearing loss Plan Admit patient to inpatient status under the care of Dr. Do for acute respiratory failure with hypoxia and pulmonary edema Room air saturations 86%, patient requiring 2 liters of oxygen to maintain adequate saturation. Patient is symptomatic with exertion as well as orthopnea. He was given Lasix 40 mg IV in the emergency room. Will continue with aggressive diuresis Lasix 40 every 8 hours. Will monitor daily weights and urinary output. Obtain an echocardiogram for further cardiac evaluation and consultation placed to Dr. Centeno for further recommendations. Will monitor on cardiac telemetry, on admission. Patient is in sinus rhythm. Obtain serial troponins 3 to rule out cardiac ischemia. Continue chronic anticoagulation, Eliquis 2.5 milligrams daily. This dose did decrease to daily starting today. Continue with normal antihypertensives including atenolol, Norvasc Once patient is medically stable. Will consult PT and OT for evaluation of strength and endurance. In 10 used to reside independently and is active currently mows the lawn Will recheck CBC and BMP tomorrow morning to follow blood counts, renal function , electro-lytes. She does request to be a full code and this order is written Further orders and plan of care discussed with attending, Dr. Do. At time of discharge medical care is to return to primary care provider, Dr. Schroeder 11/16/16 Cardiology Diastolic CHF:EF 60%. Has JVD, no edema or rales, not far from patient's baseline. Diurese with Lasix 40mg IV Q8H as ordered by hospitalist Follow renal and electrolytes Pulmonary edema:Findings most consistent with moderate pulmonary edema per chest X-ray report. Diurese with Lasix 40mg IV Q8H as ordered by hospitalist Paroxysmal AFib: Takes Amiodarone and Eliquis. Check TSH and Mag Chronic pulmonary HTN: PAP increased per echo CAD:Recent stress test stable, routine monitoring Thank you for allowing us to participate in the care of this patient, we will follow with you. 11/17- Plan Appreciate her Dolgic consultation by Dr. Centeno, echocardiogram performed yesterday revealed EF 67% with aortic sclerosis and mild to moderate aortic insufficiency, pulmonary hypertension At rest, patient is able to wean down to room air. Will have RT do an ambulatory oximetry to evaluate for hypoxia with exertion. Would like PT and OT to evaluate patient. He is independent and resides at home and is very active, continues to mow the lawn routinely. Continue with diureses- Lasix 40 milligrams every 8 hours. Ask nursing staff to weigh patient daily to monitor fluid as well as output. BMP evaluated, creatinine slightly up at 1.9, likely secondary to diureses. Will continue to follow. Case discussed with attending Dr Do <Konstantin Do - Last Filed: 11/17/16 13:57> Objective Vital signs: Temperature 95.5 F L 11/17/16 07:40 Pulse Rate 78 11/17/16 07:50 Respiratory Rate 20 11/17/16 07:40 Blood Pressure 99/68 11/17/16 07:40 Pulse Oximetry 93 11/17/16 09:12 Height/Weight/BMI: Height 1.75 m Weight 90.4 kg Body Mass Index 29.4 Results - Labs CBC & Chem 7: 11/17/16 04:21 11/17/16 04:21 Assessment and Plan (1) Congestive heart failure Problem details: Diastolic Current visit: Yes Status: Acute (2) Pulmonary edema Current visit: Yes Status: Acute (3) Acute respiratory failure with hypoxemia Current visit: Yes Status: Acute DVT Prophylaxis: Eliquis Resuscitation Status: Full Code Assessment and Plan: Impression CHF - Acute on chronic diastolic heart failure Respiratory failure with hypoxia Pulmonary edema Atrial fibrillation Anticoagulation with Eliquis COPD Pulmonary Hypertension Hypertension Dyslipidemia Stage III CKD BPH Hearing loss Overweight with BMI 29.4 Have independently interviewed and examined pt. Chart reviewed. Case discussed with my FRONT COUNTER CLERK. Care plan developed with my supervision; agree with above. Doing better-feels breathing easier. Still notes some congestion to chest at night-has been coughing up phlegm at night for the past several weeks. Mouth dry when wakes in am. RT did walk patient-saturations decreased with ambulation. Maintaining saturation on RA at rest. No pain with breathing. No chest pressure. Eating well. Not having ab pain or nausea. Lungs: decreased, improving air movement. No crackles. CV: regular AB; soft nt/nd +BS EXT: trace edema bilaterally. MSE: awake alert appropriate Plan: Will decreased Lasix - addition dose of 40mg IV this afternoon and then change to 20mg po daily tomorrow. Oral potassium 20mEq this evening as potassium low normal on lab this am. Mucinex DM at night to help decrease cough and congestion. Will obtain overnight oximetry and concern of nocturnal hypoxia. Recheck CXR in am to reassess pulmonary edema. Recheck BMP and Mg due to diuretic use. Encourage ambulation. Possible home tomorrow if continues to do well. Hospital Course Summary Disclaimer: The visit summary below is not to be considered part of the above Progress Note.
[2016-11-17] MEDS ORDERED: ACETAMINOPHEN 325 MG TABLET PO PRN (13:59)
--- NOTE | 2016-11-17 14:29 | Cardiology Progress Note ---
Subjective Principal diagnosis: CHF, hypoxia <Vee Moody 11/17/16 14:29> Interval history: Eloisa is seen in follow up for CHF and hypoxia. He is sitting in the recliner on room air, in no distress. He denies chest pain, palpitations, dyspnea or other complaints. <Vee Moody 11/17/16 14:29> Exam Vital signs: Temperature 95.3 F L 11/18/16 08:55 Pulse Rate 77 11/18/16 08:55 Respiratory Rate 18 11/18/16 08:55 Blood Pressure 113/79 11/18/16 08:55 Pulse Oximetry 97 11/18/16 09:09 <JacoboJoes F - 11/23/16 13:27> Temperature 95.5 F L 11/17/16 07:40 Pulse Rate 78 11/17/16 13:45 Respiratory Rate 20 11/17/16 07:40 Blood Pressure 99/68 11/17/16 07:40 Pulse Oximetry 97 11/17/16 13:45 <Vee Moody 11/17/16 14:29> - Constitutional no acute distress, well nourished, cooperative <Vee Moody 11/17/16 14: 29> - Routine HEENT Exam Head: Present: normocephalic <Vee Moody 11/17/16 14:29> ENT: Present: mucous membranes moist <Vee Moody 11/17/16 14:29> - Routine Neck Exam Absent: JVD, carotid bruit <Vee Moody 11/17/16 14:29> - Routine Chest/Breast/Axilla Exam Chest wall: Absent: tenderness <Vee Moody 11/17/16 14:29> - Routine Respiratory Exam Present: CTA bilaterally. Absent: rales, wheezes <Vee Moody 11/17/16 14:29> - Routine Cardiovascular Exam Present: RRR, no murmur. Absent: JVD <Vee Moody 11/17/16 14:29> - Routine Abdominal Exam Present: soft, normoactive bowel sounds <Vee Moody 11/17/16 14:29> - Routine Extremities Exam Present: no edema <Vee Moody - 11/17/16 14:29> - Routine Skin Exam Present: intact, dry, warm <Vee Moody - 11/17/16 14:29> - Routine Neurological Exam Present: alert, oriented X3 <Vee Moody - 11/17/16 14:29> - Routine Psychiatric Exam Present: normal affect, normal thought process <Vee Moody - 11/17/16 14: 29> - Additional findings Additional findings: Laboratory Results - last 24 hr 11/16/16 11/17/16 11/17/16 18:38 04:21 04:21 WBC 9.9 RBC 3.98 L Hgb 12.1 L Hct 36.9 L MCV 92.7 MCH 30.4 MCHC 32.8 RDW Std Deviation 46.7 Plt Count 258 MPV 10.9 Immature Gran % (Auto) 1.1 H Neut % (Auto) 70.4 H Lymph % (Auto) 12.8 L [place] % (Auto) 10.9 H Eos % (Auto) 4.5 H Baso % (Auto) 0.3 Neut # (Auto) 6.9 Lymph # (Auto) 1.3 [place] # (Auto) 1.1 H Eos # (Auto) 0.4 Baso # (Auto) 0.0 Abs Immat Gran (auto) 0.11 H Turbidity < 20 Sodium 139 Potassium 3.6 D Chloride 98 Carbon Dioxide 31 H Anion Gap 10 BUN 33.0 H Creatinine 1.9 H D GFR Calculation 34 BUN/Creatinine Ratio 17 Glucose 101 Calculated Osmolality 275 Calcium 9.1 Magnesium 1.8 Icterus Index < 2 Troponin I < 0.012 < 0.012 TSH 9.17 H Specimen Hemolysis < 15 < 15 Acetaminophen (Tylenol) 650 mg PO Q5H PRN PRN Reason: Discomfort Amiodarone HCl (Pacerone) 200 mg PO DAILY [facility] Last Admin: 11/17/16 09:12 Dose: 200 mg Amlodipine Besylate (Norvasc) 5 mg PO DAILY [facility] Last Admin: 11/17/16 09:11 Dose: Not Given Apixaban (Eliquis) 2.5 mg PO DAILY [facility] Last Admin: 11/17/16 09:12 Dose: 2.5 mg Atenolol (Tenormin) 50 mg PO DAILY [facility] Last Admin: 11/17/16 09:10 Dose: 50 mg Atenolol (Tenormin) 25 mg PO PM [facility] Last Admin: 11/16/16 20:21 Dose: 25 mg Finasteride (Proscar) 5 mg PO DAILY [facility] Last Admin: 11/17/16 09:12 Dose: 5 mg Furosemide (Lasix) 20 mg PO DAILY [facility] Furosemide (Lasix) 40 mg IVP O ONE Stop: 11/17/16 16:01 Guaifenesin/Dextromethorphan (Mucinex Dm) 1 tab PO HS [facility] Magnesium Hydroxide (Mom) 30 ml PO DAILY PRN PRN Reason: Constipation Potassium Chloride (K-Dur) 20 meq PO O ONE Stop: 11/17/16 17:31 Pravastatin Sodium (Pravachol) 40 mg PO HS [facility] Last Admin: 11/16/16 20:21 Dose: 40 mg Sodium Chloride (Iv Flush) 10 - 80 ml IVF PRN PRN PRN Reason: [place]ushing Last Admin: 11/17/16 09:09 Dose: 10 ml Sodium Chloride (Deep Sea Nasal Moisturizing [place]) 2 spray EA NOSTRIL QID [facility] <Vee Moody - 11/17/16 14:29> Assessment and Plan - Assessment and Plan (1) Congestive heart failure Problem details: Diastolic Status: Acute (2) Pulmonary edema Status: Acute (3) Acute respiratory failure with hypoxemia Status: Acute (4) Paroxysmal atrial fibrillation Status: Acute (5) Nonrheumatic mitral valve insufficiency Status: Acute (6) Chronic pulmonary hypertension Status: Acute (7) Essential (primary) hypertension Status: Acute (8) Mixed hyperlipidemia Status: Acute (9) Atherosclerotic heart disease of [place] coronary artery without angina pectoris Status: Acute <Jose F Centeno - 11/23/16 13:27> (1) Congestive heart failure Problem details: Diastolic Status: Acute Diastolic CHF:EF 60%. No JVD, on Room air today. Agree with decreased diuresis (2) Pulmonary edema Status: Acute (3) Acute respiratory failure with hypoxemia Status: Acute (4) Paroxysmal atrial fibrillation Status: Acute (5) Nonrheumatic mitral valve insufficiency Status: Acute (6) Chronic pulmonary hypertension Status: Acute (7) Essential (primary) hypertension Status: Acute (8) Mixed hyperlipidemia Status: Acute (9) Atherosclerotic heart disease of [place] coronary artery without angina pectoris Status: Acute <Vee Moody 11/17/16 17:24> - Attestation Attestation Narrative: 11/23/16 13:27 Recommendation After examining the patient I agree with the above assessment. I am involved in the formulation of the patient's plan of care. <Jose F Centeno - 11/23/16 13:27> Hospital Course Summary Disclaimer: The visit summary below is not to be considered part of the above Progress Note. <Randell Centenoin - 11/23/16 13:27> The visit summary below is not to be considered part of the above Progress Note. <Vee Moody - 11/17/16 14:29> Hospital Course: 11/16/16 - initial admission Impression CHF Respiratory failure with hypoxia Pulmonary edema Atrial fibrillation COPD Hypertension Dyslipidemia BPH Hearing loss Plan Admit patient to inpatient status under the care of Dr. Do for acute respiratory failure with hypoxia and pulmonary edema Room air saturations 86%, patient requiring 2 liters of oxygen to maintain adequate saturation. Patient is symptomatic with exertion as well as orthopnea. He was given Lasix 40 mg IV in the emergency room. Will continue with aggressive diuresis Lasix 40 every 8 hours. Will monitor daily weights and urinary output. Obtain an echocardiogram for further cardiac evaluation and consultation placed to Dr. Centeno for further recommendations. Will monitor on cardiac telemetry, on admission. Patient is in sinus rhythm. Obtain serial troponins 3 to rule out cardiac ischemia. Continue chronic anticoagulation, Eliquis 2.5 milligrams daily. This dose did decrease to daily starting today. Continue with normal antihypertensives including atenolol, Norvasc Once patient is medically stable. Will consult PT and OT for evaluation of strength and endurance. In 10 used to reside independently and is active currently mows the lawn Will recheck CBC and BMP tomorrow morning to follow blood counts, renal function , electro-lytes. She does request to be a full code and this order is written Further orders and plan of care discussed with attending, Dr. Do. At time of discharge medical care is to return to primary care provider, Dr. Schroeder 11/16/16 Cardiology Diastolic CHF:EF 60%. Has JVD, no edema or rales, not far from patient's baseline. Diurese with Lasix 40mg IV Q8H as ordered by hospitalist Follow renal and electrolytes Pulmonary edema:Findings most consistent with moderate pulmonary edema per chest X-ray report. Diurese with Lasix 40mg IV Q8H as ordered by hospitalist Paroxysmal AFib: Takes Amiodarone and Eliquis. Check TSH and Mag Chronic pulmonary HTN: PAP increased per echo CAD:Recent stress test stable, routine monitoring Thank you for allowing us to participate in the care of this patient, we will follow with you. 11/17/16 17:24 No JVD, on Room air today. Agree with decreased diuresis <Vee Moody - 11/17/16 17:25>
[2016-11-17] MEDS: SALINE 0.65% NASAL SPRAY 44 ML BOTTLE EA NOSTRIL SCH ×3 (15:30→20:11)
[2016-11-17] MEDS ORDERED: FUROSEMIDE 40 MG/4 ML INJECTION IVP ONE (16:00)
[2016-11-17] MEDS: PRAVASTATIN 40 MG TABLET PO SCH (20:11)
[2016-11-17] MEDS ORDERED: GUAIFENESIN/D-METHORPHAN 600mg/30mg TABLET PO SCH (21:00)
[2016-11-17 23:48] VITALS: BP 113/79
--- NOTE | 2016-11-18 08:43 | XRay Report ---
INDICATION: F/U pulmonary edema PROCEDURE: CHEST 2-VIEWS UPRIGHT (PA & LAT) Encounter: Initial COMPARISON: November 16, 2016 FINDINGS: Increased interstitial markings with reticular perihilar opacities are again seen with a similar distribution of disease to the comparison study. Slightly less density overall. No new areas of consolidation. No pneumothorax or pleural effusion. Heart size and mediastinal contours are stable. Impression: Slight improvement in appearance of the chest. .
[2016-11-18 08:56] VITALS: PULSE 77; RESP 18; TEMP 95.3
[2016-11-18] MEDS ORDERED: FUROSEMIDE 20 MG TABLET PO SCH (09:00)
[2016-11-18] MEDS: APIXABAN 5 MG TABLET PO SCH (09:07)
[2016-11-18] MEDS: SALINE 0.65% NASAL SPRAY 44 ML BOTTLE EA NOSTRIL SCH ×2 (09:07→13:03)
[2016-11-18] MEDS: AMIODARONE 200 MG TABLET PO SCH (09:08)
[2016-11-18] MEDS: FINASTERIDE 5 MG TABLET PO SCH (09:08)
[2016-11-18] MEDS: ATENOLOL 50 MG TABLET PO SCH (09:08)
[2016-11-18 09:09] VITALS: O2SAT 97
--- NOTE | 2016-11-18 13:55 | Progress Note ---
Subjective: F/U: Acute on chronic diastolic heart failure, pulmonary edema Doing well today. Breathing feels much easier-less SOA and congested. No pain with breathing. Denies chest pressure or palpitations. Nasal saline helping sinus congestion. Eating well. No nausea. Denies ab pain. Ambulating well. No f/ c. Feels ready to go home. Objective Vital signs: Temperature 95.3 F L 11/18/16 08:55 Pulse Rate 77 11/18/16 08:55 Respiratory Rate 18 11/18/16 08:55 Blood Pressure 113/79 11/18/16 08:55 Pulse Oximetry 97 11/18/16 09:09 Height/Weight/BMI: Height 1.75 m Weight 87.7 kg Body Mass Index 29.4 - Constitutional Present: no acute distress, well nourished, well developed, cooperative - Routine HEENT Exam Head: Present: normocephalic, atraumatic Eye: Present: EOMI, PERRL ENT: Present: mucous membranes moist - Routine Respiratory Exam Present: decreased breath sounds, distant breath sounds, diminished air movement. Absent: respiratory distress, rhonchi, wheezes, crackles - Routine Cardiovascular Exam Present: RRR, no murmur - Routine Abdominal Exam Present: soft, normoactive bowel sounds, non distended, non tender - Routine Extremities Exam Present: no edema, pulses intact. Absent: cyanosis, clubbing - Routine Musculoskeletal Exam Musculoskeletal: Present: no clubbing or cyanosis, normal strength - Routine Skin Exam Present: dry, warm. Absent: pallor, mottling - Routine Neurological Exam Present: alert, oriented X3, CN II-XII intact, moving all extremities, vision grossly intact, hearing grossly intact. Absent: motor deficit, altered mental status - Routine Psychiatric Exam Present: normal affect, normal thought process, cooperative. Absent: anxious, agitated Results - Labs CBC & Chem 7: 11/18/16 04:26 11/18/16 04:27 Assessment and Plan (1) Congestive heart failure Problem details: Diastolic Current visit: Yes Status: Acute (2) Pulmonary edema Current visit: Yes Status: Acute (3) Acute respiratory failure with hypoxemia Current visit: Yes Status: Acute DVT Prophylaxis: Eliquis Resuscitation Status: Full Code Assessment and Plan: Impression CHF - Acute on chronic diastolic heart failure Acute Respiratory failure with hypoxia - resolved Pulmonary edema - improved Atrial fibrillation, chronic. Rate controlled. Anticoagulation with Eliquis COPD Nocturnal hypoxia - patient requiring 1L at night. Pulmonary Hypertension Hypertension Dyslipidemia Stage III CKD BPH Hearing loss Overweight with BMI 29.4 Plan Overnight oxyimetry showing desaturations. Requiring 1L when sleeping to maintain saturations. Did qualify for home O2 at 1L with activities due to his chronic COPD. CXR showing improvement of pulmonary edema. Creatinine with increase to 2.4 - secondary to IV Lasix diuresis. BP stable - will stop Norvasc and monitor BP. Medically improved. Will discharge to home. F/U with Dr James in 1 week - check BMP at that time due to medication use. F/U with Dr Centeno in 2-4 weeks for cardiac evaluation. See orders for details. Case discussed with CM. Time spent with patient's care and discharge greater than 30 minutes. Hospital Course Summary Disclaimer: The visit summary below is not to be considered part of the above Progress Note. Hospital Course: 11/16/16 - initial admission Impression CHF Respiratory failure with hypoxia Pulmonary edema Atrial fibrillation COPD Hypertension Dyslipidemia BPH Hearing loss Plan Admit patient to inpatient status under the care of Dr. Do for acute respiratory failure with hypoxia and pulmonary edema Room air saturations 86%, patient requiring 2 liters of oxygen to maintain adequate saturation. Patient is symptomatic with exertion as well as orthopnea. He was given Lasix 40 mg IV in the emergency room. Will continue with aggressive diuresis Lasix 40 every 8 hours. Will monitor daily weights and urinary output. Obtain an echocardiogram for further cardiac evaluation and consultation placed to Dr. Centeno for further recommendations. Will monitor on cardiac telemetry, on admission. Patient is in sinus rhythm. Obtain serial troponins 3 to rule out cardiac ischemia. Continue chronic anticoagulation, Eliquis 2.5 milligrams daily. This dose did decrease to daily starting today. Continue with normal antihypertensives including atenolol, Norvasc Once patient is medically stable. Will consult PT and OT for evaluation of strength and endurance. In 10 used to reside independently and is active currently mows the lawn Will recheck CBC and BMP tomorrow morning to follow blood counts, renal function , electro-lytes. She does request to be a full code and this order is written Further orders and plan of care discussed with attending, Dr. Do. At time of discharge medical care is to return to primary care provider, Dr. Schroeder 11/16/16 Cardiology Diastolic CHF:EF 60%. Has JVD, no edema or rales, not far from patient's baseline. Diurese with Lasix 40mg IV Q8H as ordered by hospitalist Follow renal and electrolytes Pulmonary edema:Findings most consistent with moderate pulmonary edema per chest X-ray report. Diurese with Lasix 40mg IV Q8H as ordered by hospitalist Paroxysmal AFib: Takes Amiodarone and Eliquis. Check TSH and Mag Chronic pulmonary HTN: PAP increased per echo CAD:Recent stress test stable, routine monitoring Thank you for allowing us to participate in the care of this patient, we will follow with you. 11/17/16 Cardiology No JVD. Agree with decreased diuresis 11/17/16 Hospitalist Appreciate cardiac consultation by Dr. Centeno, echocardiogram performed yesterday revealed EF 67% with aortic sclerosis and mild to moderate aortic insufficiency, pulmonary hypertension At rest, patient is able to wean down to room air. Will have RT do an ambulatory oximetry to evaluate for hypoxia with exertion. Would like PT and OT to evaluate patient. He is independent and resides at home and is very active, continues to mow the lawn routinely. Continue with diureses- Lasix 40 milligrams every 8 hours. Ask nursing staff to weigh patient daily to monitor fluid as well as output. BMP evaluated, creatinine slightly up at 1.9, likely secondary to diureses. Will continue to follow. 11/18/16 Hospitalist Overnight oxyimetry showing desaturations. Requiring 1L when sleeping to maintain saturations. Did qualify for home O2 at 1L with activities due to his chronic COPD. CXR showing improvement of pulmonary edema. Creatinine with increase to 2.4 - secondary to IV Lasix diuresis. BP stable - will stop Norvasc and monitor BP. Medically improved. Will discharge to home. F/U with Dr James in 1 week - check BMP at that time due to medication use. F/U with Dr Centeno in 2-4 weeks for cardiac evaluation. See orders for details.
--- NOTE | 2016-11-18 14:07 | Discharge Summary ---
Discharge Information Date of admission: 11/16/16 13:54 Anticipated date of discharge: 11/18/16 Attending Physician: Konstantin Do MD Primary care physician: Dayday Schroeder MD Consults: Physician Consult: Jose F Centeno Reason For Exam: CHF, Hypoxia PT/OT - Discharge Diagnosis (1) Congestive heart failure Status: Acute (2) Pulmonary edema Status: Acute (3) Acute respiratory failure with hypoxemia Status: Acute Discharge Diagnosis: Discharge diagnosis CHF - Acute on chronic diastolic heart failure Associated conditions and complications Acute Respiratory failure with hypoxia - resolved Pulmonary edema - improved Atrial fibrillation, chronic. Rate controlled. Anticoagulation with Eliquis Elevated TSH COPD Nocturnal hypoxia - patient requiring 1L at night. Pulmonary Hypertension Hypertension Dyslipidemia Stage III CKD BPH Hearing loss Overweight with BMI 29.4 - Procedures Procedures: Date of Exam: 11/16/16 Type of Exam: US echo doppler complete Left atrial dimension is mildly increased. Left ventricle end-diastolic dimension is normal. Left ventricle wall thickness is normal. LV systolic function is normal with ejection fraction of 67%. Right atrium is normal. Right ventricle is normal. Aortic root dimension is normal. Mitral valve annulus is calcified. Mitral valve leaflets are normal with jzzd-bw-aanfbznz mitral regurgitation. Aortic valve shows fibrocalcific changes with no stenosis. Tkki-ta-cwgbjlsa aortic insufficiency is present. Tricuspid valve shows moderate tricuspid regurgitation with qrjpabry-na-znpwtu pulmonary hypertension with estimated pulmonary artery systolic pressure of 65-70. Pulmonary valve shows mild pulmonary insufficiency. There is no pericardial effusion. IMPRESSION 1. Normal LV systolic function with ejection fraction of 67%. 2. Left atrial dilation. 3. Mitral annulus calcification with wkoe-ii-fwdzqbbx mitral regurgitation. 4. Aortic sclerosis with fuvh-mi-cwawosro aortic insufficiency. 5. Moderate tricuspid regurgitation with bsvmwrir-hq-wqknfo pulmonary hypertension with estimated pulmonary artery systolic pressure of 65-70. 6. Mild pulmonary insufficiency. - Laboratory Labs: Admit Lab 11/16/16 12:21 WBC 10.5 Hgb 12.2 L Hct 36.3 L MCV 93.1 Plt Count 273 Neut % (Auto) 76.4 H Admit Lab 11/16/16 12:21 Sodium 138 Potassium 4.7 Chloride 102 Carbon Dioxide 27 BUN 30.0 H Creatinine 1.7 H GFR Calculation 38 BUN/Creatinine Ratio 18 Glucose 104 Calcium 8.9 Total Bilirubin 1.50 H B-Natriuretic Peptide 3880 H Other Lab 11/16/16 18:38 TSH 9.17 H 11/18/16 04:26 11/18/16 04:27 - Radiology Radiology: Date of Exam: 11/16/16 PROCEDURE: CHEST 2-VIEWS UPRIGHT (PA & LAT) FINDINGS: Hazy airspace and interstitial reticular opacity in both lungs with a central predominance. No focal lobar consolidation, gross pleural effusion or pneumothorax. Heart size and mediastinal contours are stable. Pulmonary vascularity is somewhat indistinct. Impression: Findings most consistent with moderate pulmonary edema. Date of Exam: 11/18/16 PROCEDURE: CHEST 2-VIEWS UPRIGHT (PA & LAT) FINDINGS: Increased interstitial markings with reticular perihilar opacities are again seen with a similar distribution of disease to the comparison study. Slightly less density overall. No new areas of consolidation. No pneumothorax or pleural effusion. Heart size and mediastinal contours are stable. Impression: Slight improvement in appearance of the chest. History of Present Illness HPI: Patient is an 86-year-old male is been under the primary care of Dr. Schroeder. He is under cardiology care doctor Jacobo and has a known history of atrial fibrillation and coronary artery disease. Is reported by his daughter that he has had progressive dyspnea over the past 3 weeks. Today family member went to check patient at home checked his O2 sats found him to be 86% on room air. Due to this concern about him to the emergency room for further evaluation and treatment. Acute workup revealed pulmonary edema with acute respiratory failure and hypoxia. WBC count was normal at 10.5, hemoglobin 12.2, hematocrit 36.3, platelet count 273. Sodium and potassium are normal, renal functions elevated with a BUN of 30, creatinine 1.7. Total bilirubin 1.5. Troponin was negative, less than 0.012, proBNP 99518. Patient continued to have persistent hypoxia room air saturations 86% requiring 2 liters to maintain adequate saturations. Given these findings, accompanied with pulmonary edema found on chest x-ray. The hospitalist services were contacted and accepted patient for inpatient admission for further evaluation and treatment. Is expected that his stay will be greater than 2 overnights. Eloisa is a very pleasant 86-year-old gentleman who is seen while in the emergency room prior to admission. He is alert, oriented and pleasant. She does reside independently at home with his and family's help. He reports that over the past several weeks he has noticed increased shortness of breath that is worse when he reclines at night. He states that he is still able to push mow the yard, however, only make it approximately 3 rounds until he has to stop and catch his breath. We did discuss advanced directive He does verify he wants to be a full code. For complete details of the H&P refer to that document. Objective Vital signs: Temperature 95.3 F L 11/18/16 08:55 Pulse Rate 77 11/18/16 08:55 Respiratory Rate 18 11/18/16 08:55 Blood Pressure 113/79 11/18/16 08:55 Pulse Oximetry 97 11/18/16 09:09 Height/Weight/BMI: Height 1.75 m Weight 87.7 kg Body Mass Index 29.4 Hospital Course This is a general summary of the patient's hospital course. For more details refer to the complete medical record. Hospital course: 11/16/16 - Admission Impression CHF Respiratory failure with hypoxia Pulmonary edema Atrial fibrillation COPD Hypertension Dyslipidemia BPH Hearing loss Plan Admit patient to inpatient status under the care of Dr. Do for acute respiratory failure with hypoxia and pulmonary edema Room air saturations 86%, patient requiring 2 liters of oxygen to maintain adequate saturation. Patient is symptomatic with exertion as well as orthopnea. He was given Lasix 40 mg IV in the emergency room. Will continue with aggressive diuresis Lasix 40 every 8 hours. Will monitor daily weights and urinary output. Obtain an echocardiogram for further cardiac evaluation and consultation placed to Dr. Centeno for further recommendations. Will monitor on cardiac telemetry, on admission. Patient is in sinus rhythm. Obtain serial troponins 3 to rule out cardiac ischemia. Continue chronic anticoagulation, Eliquis 2.5 milligrams daily. This dose did decrease to daily starting today. Continue with normal antihypertensives including atenolol, Norvasc Once patient is medically stable. Will consult PT and OT for evaluation of strength and endurance. In 10 used to reside independently and is active currently mows the lawn Will recheck CBC and BMP tomorrow morning to follow blood counts, renal function , electro-lytes. She does request to be a full code and this order is written Further orders and plan of care discussed with attending, Dr. Do. At time of discharge medical care is to return to primary care provider, Dr. Schroeder 11/16/16 Cardiology Diastolic CHF:EF 60%. Has JVD, no edema or rales, not far from patient's baseline. Diurese with Lasix 40mg IV Q8H as ordered by hospitalist Follow renal and electrolytes Pulmonary edema:Findings most consistent with moderate pulmonary edema per chest X-ray report. Diurese with Lasix 40mg IV Q8H as ordered by hospitalist Paroxysmal AFib: Takes Amiodarone and Eliquis. Check TSH and Mag Chronic pulmonary HTN: PAP increased per echo CAD:Recent stress test stable, routine monitoring Thank you for allowing us to participate in the care of this patient, we will follow with you. 11/17/16 Cardiology No JVD. Agree with decreased diuresis 11/17/16 Hospitalist Appreciate cardiac consultation by Dr. Centeno, echocardiogram performed yesterday revealed EF 67% with aortic sclerosis and mild to moderate aortic insufficiency, pulmonary hypertension At rest, patient is able to wean down to room air. Will have RT do an ambulatory oximetry to evaluate for hypoxia with exertion. Would like PT and OT to evaluate patient. He is independent and resides at home and is very active, continues to mow the lawn routinely. Continue with diureses- Lasix 40 milligrams every 8 hours. Ask nursing staff to weigh patient daily to monitor fluid as well as output. BMP evaluated, creatinine slightly up at 1.9, likely secondary to diureses. Will continue to follow. 11/18/16 Hospitalist Overnight oxyimetry showing desaturations. Requiring 1L when sleeping to maintain saturations. Did qualify for home O2 at 1L with activities due to his chronic COPD. CXR showing improvement of pulmonary edema. Creatinine with increase to 2.4 - secondary to IV Lasix diuresis. Will continue Lasix 20mg daily to maintain volume control. Encourage sodium avoidance. BP stable - will stop Norvasc and monitor BP. Medically improved. Will discharge to home. F/U with Dr Schroeder in 1 week - check BMP at that time due to medication use. Recommend recheck TSH in 1 month due to elevation of TSH noted during hospitalization. F/U with Dr Centeno in 2-4 weeks for cardiac evaluation. See orders for details. Time spent with patient: discharge greater than 30 minutes DVT Prophylaxis: Madhuriquterri Discharge Plan - Med Rec/Dispo Referrals/Follow Up: Dayday Schroeder MD [Family Provider] - 1 Week (Hospital F/U for acute on chronic diastolic HF. Qualifed for O2 at night and with activities (1L). Norvasc stopped. Started Lasix 20mg. Check BMP to assess creatinine and potassium. ) Jose F Centeno MD [Physician] - 2 Weeks (Hospital F/U for acute on chronic diastolic HF. ) Prescriptions: New Guaifenesin/Dm [Mucinex Dm] 1 tab PO HS #7 tablet Sodium Chloride [Deep Sea] 2 spray EA NOSTRIL QID spray Furosemide [Lasix] 20 mg PO DAILY #30 tab Continue Finasteride 5 mg PO DAILY #0 tab Amiodarone HCl 200 mg PO DAILY #30 tab Apixaban [Eliquis] 2.5 mg PO DAILY Pravastatin Sodium 40 mg PO HS Atenolol 50 mg PO AM #0 tab Atenolol [Tenormin] 25 mg PO PM Discontinued Amlodipine [Norvasc] 5 mg PO DAILY Discharge Instructions/Outpatient Orders: Final Provider Discharge Instructions Location: Determined By Patient - Disposition 01 Discharged Home, Self-Care - Attestation Attestation Narrative: 11/18/16 14:20 I have independently interviewed and examined patient prior to discharge. See my progress note from today for details. Medically stable for discharge to home.
--- NOTE | 2016-11-19 13:29 | Right on Track Program ---
Right on Track Program Date of Discharge: 11/18/16 Home Medications: Home Medications Medication Instructions Recorded Confirmed Atenolol 50 mg PO AM #0 tab 07/21/14 11/16/16 Finasteride 5 mg PO DAILY #0 tab 07/21/14 11/16/16 Apixaban [Eliquis] 2.5 mg PO DAILY 11/16/16 11/16/16 Atenolol [Tenormin] 25 mg PO PM 11/16/16 11/16/16 Pravastatin Sodium 40 mg PO HS 11/16/16 11/16/16 Previous Rx's Medication Instructions Recorded Amiodarone HCl 200 mg PO DAILY #30 tab 09/02/14 Furosemide [Lasix] 20 mg PO DAILY #30 tab 11/18/16 Guaifenesin/Dm [Mucinex Dm] 1 tab PO HS #7 tablet 11/18/16 Sodium Chloride [Deep Sea] 2 spray EA NOSTRIL QID spray 11/18/16 - Right on Track Program Phone call attempt Date: 11/19/16 Right on Track Program: 24 Hour Follow-Up Referral: Social Work Comments: I called Mr. Holden on 11/19/16 without success in reaching him. I was unable to leave a message. Discharge summary and labs were reviewed - Lasix started and Norvasc was stopped. BMP to be drawn in a week to f/u on renal function, which was increasing at time of discharge, thought to be secondary to diuretics. He qualified for home O2 as well. He should follow up with PCP in [address] Centeno in 2 weeks. Recommendations For Follow-up: 1. I will ask our CM dept to complete phone call f/u to ensure he was able to fill Rx Lasix and get his home O2 set up. He should also be reminded that he is not to be taking his Norvasc. 2. F/U with PCP and cardiology, as planned.
== END 2016-11-18 16:13 | disposition home or self-care (01) | DRG 291 ==
LOC: ED 11:54 → MED 13:54
PROVIDERS: ADMIT Hospitalist; ATTEND Hospitalist

== ENCOUNTER 2017-02-16 10:18 | Inpatient (IN) ==
[2017-02-16] MEDS ORDERED: ALBUTEROL/IPRATROPIUM 2.5mg-0.5mg/3ml NEB IH ONE (10:50)
[2017-02-16] MEDS ORDERED: FUROSEMIDE 20 MG/2 ML INJECTION IVP ONE (10:54)
--- OUTSIDE RECORDS SUMMARY | 2017-02-16 11:00 | External Medical Summary ---
[...] Date Status Dosage System Date Simvastatin NDC 64001-06 80 MG Orally 1/2 tablet 56-10 Once a day Tamsulosin HCl NDC 43975-03 0.4 MG Orally 1 capsule 38-01 Once a day 30 minutes after the same meal each day Atenolol NDC 06378-86 50 MG Orally 1 tablet 52-01 Once a day Pradaxa NDC 23225-54 150 MG Orally 1 capsule 35-54 Twice a day Amiodarone HCl NDC 99997-30 200 MG Orally 1 tablet 33-06 Once a day Losartan NDC 41737-08 100 MG Orally 1 tablet Potassium 25-22 Once a day Finasteride NDC 48017-13 5 MG Orally Once 1 tablet 55-01 a day Procedures Procedure Coding System Code Date Office Visit, Est Pt., Level 4 CPT-4 14945 June 04, 2015 ELECTROCARDIOGRAM, COMPLETE CPT-4 66572 June 04, 2015 Vital Signs Date/Time: June 04, 2015 BMI 31.62 Index Weight 208 lbs Height 68 in Cardiac Monitoring Heart Rate 64 /min Oximetry 95 % Blood Pressure Diastolic 94 mm Hg Blood Pressure Systolic 162 mm Hg Results Name Result Date Reference Range Unit Abnormality Flag AtriaECW Summary Purpose eClinicalWorks Submission
[2017-02-16] MEDS: SALINE FLUSH 10ml SYRINGE IVF PRN (11:03)
--- NOTE | 2017-02-16 12:02 | XRay Report ---
INDICATION: soa PROCEDURE: CHEST 2-VIEWS UPRIGHT (PA & LAT) Encounter: Initial COMPARISON: November 18, 2016 FINDINGS: Increasing hazy bilateral airspace opacity with chronic interstitial prominence. Right basilar scarring. No pneumothorax. Trace effusions. Heart size and mediastinal contours are stable. Impression: Moderate pulmonary edema. .
--- NOTE | 2017-02-16 12:32 | Emergency Department Report ---
SOB HPI - General Chief Complaint: Shortness of Breath/Dyspnea Stated Complaint: diff breathing Time Seen by Provider: 02/16/17 10:38 - History of Present Illness 86-year-old gentleman presents with shortness of breath the last 3 days. It has been worsening steadily each day. He normally wears oxygen at night when he sleeps, but is somewhat noncompliant because he finds the oxygen nasal cannula to be annoying. However he has been having to try and wears oxygen last couple days and even turned it up last night to 3 L because he was having difficulty breathing. His granddaughter brings him in today for evaluation. On further questioning, he has been written a prescription for Lasix, but quit taking it because he does not like its effect. It was very inconvenient to be urinating all the time. He does have a history of rate controlled atrial fibrillation. No other concerns or questions at this time. No chest pain. - Related Data Home Medications Medication Instructions Recorded Confirmed Apixaban [Eliquis] 2.5 mg PO BID 11/16/16 02/16/17 Atenolol [Tenormin] 25 mg PO PM 11/16/16 02/16/17 Pravastatin Sodium 40 mg PO HS 11/16/16 02/16/17 Amiodarone [Pacerone] 200 mg PO DAILY 02/16/17 02/16/17 Amlodipine [Norvasc] 10 mg PO DAILY 02/16/17 02/16/17 Atenolol [Tenormin] 50 mg PO QAM 02/16/17 02/16/17 Finasteride [Proscar] 5 mg PO DAILY 02/16/17 02/16/17 Folic Acid [Folate] 1 mg PO DAILY 02/16/17 02/16/17 Levothyroxine Sodium 25 mcg PO ACB 02/16/17 02/16/17 Tamsulosin [Flomax] 0.4 mg PO DAILY 02/16/17 02/16/17 Previous Rx's Medication Instructions Recorded Furosemide [Lasix] 20 mg PO DAILY #30 tab 11/18/16 Allergies Allergy/AdvReac Type Severity Reaction Status Date / Time No Known Allergies Allergy Verified 02/16/17 10:53 Review of Systems All systems: reviewed and negative except as stated PFSH Patient Stated Medical History Dementia Yes Cataracts Yes: both eyes Hearing Loss Yes: both ears Cardiac Arrhythmia Yes: Hx of AFib- no longer Hypertension Yes Pneumonia Yes: hx Hx Benign Prostatic Yes Hyperplasia Surgical History: Multiple cardiac ablations. Cardioversion- x3. Vasectomy. Cardiac catheterization-08/04/2014. At that time EF 40-45%. - Social History Smoking status: Former smoker Substance use type: does not use Physical Exam - Limitations Limitations: no limitations - General General appearance: alert, anxious (tachypnea with mild anxiety.) - Normal Exams: Head:: Normocephalic without trauma Chest/Respirations:: with good airflow, and symmetry bilaterally Cardiovascular:: without murmur or gallop, Pulses 2+ all extremities, capillary refill, <2 seconds all extremities Abdomen:: Bowel sounds positive, soft, non-tender, non-distended, no hepatosplenomegaly, masses or bruits noted Neurological:: Patient is alert, and oriented, cranial nerves, motor/sensory/ cerebellar, exams w/o gross deficits, to observation Psychiatric:: Patient exhibits, appropriate attention, emotion and affect Course Vital Signs Temperature 96.6 F L 02/16/17 10:24 Pulse Rate 75 02/16/17 10:24 Respiratory Rate 24 02/16/17 10:24 Blood Pressure 153/79 H 02/16/17 10:24 Pulse Oximetry 84 L 02/16/17 10:24 Temperature 96.6 F L 02/16/17 10:24 Pulse Rate 82 02/16/17 10:37 Respiratory Rate 18 02/16/17 11:10 Blood Pressure 153/79 H 02/16/17 10:24 Pulse Oximetry 96 02/16/17 11:10 Shortness of Breath/Dyspnea - Lab Data Result diagrams: 02/16/17 10:56 02/16/17 11:28 Lab Results 02/16/17 02/16/17 02/16/17 Range/Units 10:56 10:56 11:11 WBC 12.0 H (4.5-11.0) T/MM3 RBC 4.03 L (4.50-5.90) M/MM3 Hgb 12.5 L (13.5-17.5) GM/DL Hct 37.9 L (41-53) % MCV 94.0 (80-100) UM3 MCH 31.0 (26-34) UUG MCHC 33.0 (31-37) GM/DL RDW Std Deviation 46.2 (36.9-50.2) FL Plt Count 291 (130-400) T/MM3 MPV 10.2 (9.4-12.4) UM3 Immature Gran % (Auto) Not performed Neut % (Auto) Not performed Lymph % (Auto) Not performed [place] % (Auto) Not performed Eos % (Auto) Not performed Baso % (Auto) Not performed Neut # (Auto) Not performed Lymph # (Auto) Not performed [place] # (Auto) Not performed Eos # (Auto) Not performed Baso # (Auto) Not performed Abs Immat Gran (auto) Not performed Neutrophils % (Manual) 85.0 H (33-66) % Band Neutrophils % 4.0 (0-6) % Lymphocytes % (Manual) 6.0 L (23-45) % Monocytes % (Manual) 3.0 (0-9.0) % Eosinophils % (Manual) 1.0 (0-4) % Myelocytes % 1.0 H (0-0) % Neutrophils # (Manual) 10.2 H (1.8-7.7) T/MM3 Band Neutrophils # 0.5 T/MM3 Lymphocytes # (Manual) 0.7 L (1-4.8) T/MM3 Monocytes # (Manual) 0.4 (0-0.8) T/MM3 Eosinophils # (Manual) 0.1 (0-0.5) T/MM3 Myelocytes # 0.1 T/MM3 RBC Morph Comment Normal D-Dimer 332 H (0-230) NG/ML Turbidity (0-20) Sodium (134-144) MEQ/L Potassium (3.6-5) MEQ/L Chloride (98-107) MEQ/L Carbon Dioxide (22-30) MEQ/L Anion Gap (5-15) MEQ/L BUN (9-20) MG/DL Creatinine (0.8-1.5) MG/DL GFR Calculation BUN/Creatinine Ratio (6-26) RATIO Glucose (75-110) MG/DL Calculated Osmolality (261-280) MOSM/KG Calcium (8.4-10.2) MG/DL Total Bilirubin (0.20-1.30) MG/DL Icterus Index (0-7) AST (17-59) U/L ALT (21-72) U/L Alkaline Phosphatase (38-126) U/L Troponin I (0-0.12) ng/ml B-Natriuretic Peptide (0-175) pg/mL Total Protein (6.3-8.2) G/DL Albumin (3.5-5.0) G/DL Globulin (2.4-3.6) G/DL Albumin/Globulin Ratio (1.1-2.2) RATIO Specimen Hemolysis (0-25) Ur Collection Type Urine Color (YELLOW) Urine Clarity Urine pH (5.0-8.0) Ur Specific [place] (1.015-1.025) Urine Protein (NEGATIVE) Urine Glucose (UA) (NEGATIVE) Urine Ketones (NEGATIVE) Urine Occult Blood (NEGATIVE) Urine Nitrate (NEGATIVE) Urine Bilirubin (NEGATIVE) Urine Urobilinogen (NORMAL) EU/DL Ur Leukocyte Esterase (NEGATIVE) Urinalysis Comment Specimen Comment Lab to recollect Tests Not Done Cmp tropi bnp Reason Tests Not Done Hemolyzed specimen 02/16/17 02/16/17 Range/Units 11:28 12:01 WBC (4.5-11.0) T/MM3 RBC (4.50-5.90) M/MM3 Hgb (13.5-17.5) GM/DL Hct (41-53) % MCV (80-100) UM3 MCH (26-34) UUG MCHC (31-37) GM/DL RDW Std Deviation (36.9-50.2) FL Plt Count (130-400) T/MM3 MPV (9.4-12.4) UM3 Immature Gran % (Auto) Neut % (Auto) Lymph % (Auto) [place] % (Auto) Eos % (Auto) Baso % (Auto) Neut # (Auto) Lymph # (Auto) [place] # (Auto) Eos # (Auto) Baso # (Auto) Abs Immat Gran (auto) Neutrophils % (Manual) (33-66) % Band Neutrophils % (0-6) % Lymphocytes % (Manual) (23-45) % Monocytes % (Manual) (0-9.0) % Eosinophils % (Manual) (0-4) % Myelocytes % (0-0) % Neutrophils # (Manual) (1.8-7.7) T/MM3 Band Neutrophils # T/MM3 Lymphocytes # (Manual) (1-4.8) T/MM3 Monocytes # (Manual) (0-0.8) T/MM3 Eosinophils # (Manual) (0-0.5) T/MM3 Myelocytes # T/MM3 RBC Morph Comment D-Dimer (0-230) NG/ML Turbidity < 20 (0-20) Sodium 142 (134-144) MEQ/L Potassium 4.6 (3.6-5) MEQ/L Chloride 105 (98-107) MEQ/L Carbon Dioxide 26 (22-30) MEQ/L Anion Gap 11 (5-15) MEQ/L BUN 39.0 H (9-20) MG/DL Creatinine 1.8 H (0.8-1.5) MG/DL GFR Calculation 36 BUN/Creatinine Ratio 22 (6-26) RATIO Glucose 116 H (75-110) MG/DL Calculated Osmolality 283 H (261-280) MOSM/KG Calcium 9.0 (8.4-10.2) MG/DL Total Bilirubin 1.00 (0.20-1.30) MG/DL Icterus Index < 2 (0-7) AST 21 (17-59) U/L ALT 26 (21-72) U/L Alkaline Phosphatase 86 (38-126) U/L Troponin I < 0.012 (0-0.12) ng/ml B-Natriuretic Peptide 1690 H (0-175) pg/mL Total Protein 7.5 (6.3-8.2) G/DL Albumin 4.0 (3.5-5.0) G/DL Globulin 3.5 (2.4-3.6) G/DL Albumin/Globulin Ratio 1.1 (1.1-2.2) RATIO Specimen Hemolysis < 15 (0-25) Ur Collection Type Urine, clean catch Urine Color Yellow (YELLOW) Urine Clarity Clear Urine pH 5.5 (5.0-8.0) Ur Specific [place] 1.015 (1.015-1.025) Urine Protein Negative (NEGATIVE) Urine Glucose (UA) Negative (NEGATIVE) Urine Ketones Negative (NEGATIVE) Urine Occult Blood Negative (NEGATIVE) Urine Nitrate Negative (NEGATIVE) Urine Bilirubin Negative (NEGATIVE) Urine Urobilinogen 0.2 (NORMAL) EU/DL Ur Leukocyte Esterase Negative (NEGATIVE) Urinalysis Comment Microscopic not ind. Specimen Comment Tests Not Done Reason Tests Not Done Disposition Prescriptions: No Action Apixaban [Eliquis] 2.5 mg PO BID Pravastatin Sodium 40 mg PO HS Folic Acid [Folate] 1 mg PO DAILY Tamsulosin [Flomax] 0.4 mg PO DAILY Amlodipine [Norvasc] 10 mg PO DAILY Amiodarone [Pacerone] 200 mg PO DAILY Atenolol [Tenormin] 50 mg PO QAM Atenolol [Tenormin] 25 mg PO PM Furosemide [Lasix] 20 mg PO DAILY #30 tab Levothyroxine Sodium 25 mcg PO ACB Finasteride [Proscar] 5 mg PO DAILY Referrals: Dayday Schroeder MD [Family Provider] -
[2017-02-16 13:47] VITALS: BMI 31.6
--- NOTE | 2017-02-16 14:23 | History & Physical Report ---
History of Present Illness Date: 02/16/17 Chief complaint: Dyspnea HPI: Mr Holden is a pleasant 86, showed male who is known to the Hospital services from previous admissions. Patient is under the primary care provider, Dr. Ramses Schroeder. Patient resides at home with his and they have [id number]-[id number] caregivers. He noticed for the last several days he has had increased shortness of breath, yesterday he started having coughing with more dyspnea. He needed to increase oxygen to 3 liters. Patient chronically uses 1 liter at night and 1 liter with exertion. 's morning. Granddaughter reports she checked patient's O2 sats and they were 86% on 3 liters. Given the increased cough and dyspnea, and hypoxia, she brought to the emergency room for further evaluation. Further laboratory studies were obtained. Patient was found have an elevated white count at 12.0, 85% neutrophils, 4% bands, hemoglobin 12.5. Chemistry panel is reviewed, renal function slightly elevated with a creatinine of 1.8 which appears to be about baseline. Troponin was negative, proBNP 1690. Urine is negative, d-dimer 332. Chest x-ray was obtained that did show moderate pulmonary edema. Given this finding, accompanied with his increased oxygen to meet needs to 5 liters to maintain adequate saturations. The hospitalist services were contacted and accepted patient is inpatient for further evaluation and treatment. It is reported that patient has not been taking his Lasix because he does not like urinating frequently. Granddaughter, who is his caregiver also reports he has not been using the oxygen regularly at night as he does not like the noise of the concentrator. Did discuss advanced directives and he does wish to be a full code. Review of Systems All systems PM: 10-point ROS was reviewed, no additional remarkable complaints except - Constitutional Constitutional: Present: fatigue, malaise - Respiratory Respiratory: Present: cough, dyspnea Past Medical History Patient Stated Medical History Atrial fibrillation COPD Coronary artery disease History of pulmonary nodules Hypertension BPH. Hearing loss Dementia? Medical History Updates: ECHO- 11/16/16-. 1. Normal LV systolic function with ejection fraction of 67%. 2. Left atrial dilation. 3. Mitral annulus calcification with kwqn-ki-whqocxbu mitral regurgitation. 4. Aortic sclerosis with nzlw-qx-cdvkysfl aortic insufficiency. 5. Moderate tricuspid regurgitation with vtemqlbw-gi-nvlyso pulmonary hypertension with estimated pulmonary artery systolic pressure of 65-70. 6. Mild pulmonary insufficiency. Surgical History: Multiple cardiac ablations. Cardioversion- x3. Vasectomy. Cardiac catheterization-08/04/2014. At that time EF 40-45%. Family History Updates: Father-liver failure. Mother-diabetes. Brother- prostate cancer - Social History Smoking status: Former smoker Substance use type: does not use Alcohol intake frequency: does not drink Current residence: Apartment/Private Home Social history: Formally worked in a [employer], concern for chronic lung damage. Currently resides at home with , however, has uicwz-rdl-yzbjb care. Primary care provider, Dr. Schroeder Occupational Therapy Supervisor Dr. Centeno Medications Home Medications Medication Instructions Recorded Confirmed Type Apixaban [Eliquis] 2.5 mg PO BID 11/16/16 02/16/17 History Atenolol [Tenormin] 25 mg PO PM 11/16/16 02/16/17 History Pravastatin Sodium 40 mg PO HS 11/16/16 02/16/17 History Amiodarone [Pacerone] 200 mg PO DAILY 02/16/17 02/16/17 History Amlodipine [Norvasc] 10 mg PO DAILY 02/16/17 02/16/17 History Atenolol [Tenormin] 50 mg PO QAM 02/16/17 02/16/17 History Finasteride [Proscar] 5 mg PO DAILY 02/16/17 02/16/17 History Folic Acid [Folate] 1 mg PO DAILY 02/16/17 02/16/17 History Levothyroxine Sodium 25 mcg PO ACB 02/16/17 02/16/17 History Tamsulosin [Flomax] 0.4 mg PO DAILY 02/16/17 02/16/17 History Allergies Allergy/AdvReac Type Severity Reaction Status Date / Time No Known Allergies Allergy Verified 02/16/17 13:52 Exam Vital Signs: Temperature 97.0 F 02/16/17 13:42 Pulse Rate 65 02/16/17 13:42 Respiratory Rate 20 02/16/17 13:42 Blood Pressure 125/77 02/16/17 13:42 Pulse Oximetry 95 02/16/17 13:42 Telemetry Rhythm: Sinus Rhythm Height/Weight/BMI: Height 1.7 m Weight 91.5 kg Body Mass Index 31.6 - Constitutional Present: well nourished, well developed - Routine HEENT Exam Eye: Present: EOMI ENT: Present: mucous membranes moist, dentition normal - Routine Respiratory Exam Present: CTA bilaterally. Absent: wheezes - Routine Cardiovascular Exam Present: RRR, S1, S2. Absent: murmur - Routine Abdominal Exam Present: soft, normoactive bowel sounds, non distended. Absent: tenderness - Routine Extremities Exam Present: normal capillary refill - Routine Skin Exam Present: dry, warm - Routine Neurological Exam Present: alert, oriented X3, CN II-XII intact, moving all extremities - Routine Psychiatric Exam Present: normal affect, cooperative Results - Labs CBC & Chem 7: 02/16/17 10:56 02/16/17 11:28 Assessment and Plan (1) Congestive heart failure Problem details: Diastolic Current visit: No Status: Acute (2) Pulmonary edema Current visit: No Status: Acute Assessment and Plan: Impression Pulmonary edema CHF Hypertension Atrial fibrillation Coronary artery disease COPD pulmonary nodules BPH Chronic anticoagulation-Eliquis Plan Admit as a inpatient under the care of Dr Do for pulmonary edema, congestive heart failure He is currently requiring 5 liters of oxygen by nasal cannula to maintain saturations. Baseline is 1 Liter at night and with exertion Patient was given a one-time dose of IV Lasix 20 milligrams well in the emergency room. Did review patient's weights. Patient is 13 pounds since discharge at the end of October. Will Continue with Lasix scheduled every 8 hours. Monitor electrolytes carefully. May need potassium replacement Place Cao catheter to monitor accurate output, weight patient daily to trend weights and fluid status Will monitor cardiac telemetry and obtain serial troponins. Will continue with all home medications except Lasix Patient is chronically on Eliquis for anticoagulation SCD to bilateral lower ext for DVT prophylaxis Agent does wish to be a full code and this orders written. Will discuss further orders and plan of care with attending, Dr. Do At time of discharge medical care will return to primary care provider, Dr. Elda DO Assessment Pulmonary edema Acute on chronic hypoxic respiratory failure Acute on chronic diastolic heart failure Leukocytosis Coronary artery disease Atrial fibrillation Chronic anticoagulation with Eliquis secondary to afib Hypertension Hyperlipidemia COPD Pulmonary hypertension Pulmonary nodules Nocturnal hypoxia BPH Stage III CKD Hypothyroidism Plan Inpatient admission - anticipate greater than 2 midnights of care needed. Tele. Will check serial troponin to exclude AMI as cause of pulmonary edema. Lasix 20mg IV q 8 hour to help decrease pulmonary edema. Cao cath to be placed secondary to need for frequent IV Lasix. Start neb treatments of DuoNeb QID secondary to COPD. Will give Mucinex DM BID to help decrease cough. Supplemental O2, weaning as able to baseline. Continue with home medications. Will check TSH secondary to hypothyroidism - Synthroid has been started since prior hospitalization. Monitor lab. Full code as per his requests. Care to return to Dr Schroeder at time of discharge from [facility]. DVT Prophylaxis: SCD's, Eliquis Resuscitation Status: Full Code - Physician Narrative Physician: Konstantin Do MD Narrative: Date: 02/16/17 Time: 1524 Hi I have independently interviewed and examined pt. Chart reviewed. Case discussed with ED provider and my MANAGER SAFE. Care plan developed with my supervision ; agree with above. Presents to ED with increasing SOA/difficulty breathing. Breathing worsening over past 3 days-progressive. Chest very congested. Increasing cough with clear sputum. No pain with breathing or chest wall pain from coughing. Becoming winded with minimal activities. Needed to increase O2 to 3L at night to help his symptoms. No f/c. Appetite and bowel function stable. No n/v. No urinary pain or discomfort. Not having increased LE edema. Does note sinus congestion. No chest pressure or palpitations. Room air saturations in the mid 80's despite 3L O2. Evaluated in ED. CXR showing pulmonary edema. With patients acute pulmonary edema and acute on chronic hypoxic respiratory failure, he is placed in inpatient admission status. Lungs: decreased, bilateral crackles. CV: regular Ab: soft nt/nd +BS MSE: awake alert appropriate Assessment Pulmonary edema Acute on chronic hypoxic respiratory failure Acute on chronic diastolic heart failure Leukocytosis Coronary artery disease Atrial fibrillation Chronic anticoagulation with Eliquis secondary to afib Hypertension Hyperlipidemia COPD Pulmonary hypertension Pulmonary nodules Nocturnal hypoxia BPH Stage III CKD Hypothyroidism Plan Inpatient admission - anticipate greater than 2 midnights of care needed. Tele. Will check serial troponin to exclude AMI as cause of pulmonary edema. Lasix 20mg IV q 8 hour to help decrease pulmonary edema. Cao cath to be placed secondary to need for frequent IV Lasix. Start neb treatments of DuoNeb QID secondary to COPD. Will give Mucinex DM BID to help decrease cough. Supplemental O2, weaning as able to baseline. Continue with home medications. Will check TSH secondary to hypothyroidism - Synthroid has been started since prior hospitalization. Monitor lab. Full code as per his requests. Care to return to Dr Schroeder at time of discharge from [facility]. Hospital Course Summary Disclaimer: The visit summary below is not to be considered part of the above Progress Note. Hospital Course: 02/16/17 Impression Pulmonary edema CHF Pretension Atrial fibrillation Coronary artery disease COPD pulmonary nodules BPH Chronic anticoagulation-Eliquis Plan Admit as a inpatient under the care of Dr Do for pulmonary edema, congestive heart failure He is currently requiring 5 liters of oxygen by nasal cannula to maintain saturations. Baseline is 1 Liter at night and with exertion Patient was given a one-time dose of IV Lasix 20 milligrams well in the emergency room. Did review patient's weights. Patient is 13 pounds since discharge at the end of October. Will Continue with Lasix scheduled every 8 hours. Monitor electrolytes carefully. May need potassium replacement Place Cao catheter to monitor accurate output, weight patient daily to trend weights and fluid status Will monitor cardiac telemetry and obtain serial troponins. Will continue with all home medications except Lasix Patient is chronically on Eliquis for anticoagulation SCD to bilateral lower ext for DVT prophylaxis Agent does wish to be a full code and this orders written. Will discuss further orders and plan of care with attending, Dr. Do At time of discharge medical care will return to primary care provider, Dr. Schroeder
[2017-02-16] MEDS ORDERED: POLYETHYL GLYCOL 3350 17gm PACKET PO PRN (15:05)
[2017-02-16] MEDS ORDERED: ACETAMINOPHEN 500 MG TABLET PO PRN (15:05)
[2017-02-16] MEDS ORDERED: BISACODYL 10 MG SUPPOSITORY RECTALLY PRN (15:05)
[2017-02-16] MEDS ORDERED: MENTHOL COUGH DROPS (RICOLA) MM PRN (15:25)
[2017-02-16] MEDS: FUROSEMIDE 20 MG/2 ML INJECTION IVP SCH (18:29)
[2017-02-16] MEDS: ALBUTEROL/IPRATROPIUM 2.5mg-0.5mg/3ml NEB AEROSOL SCH (19:31)
[2017-02-16] MEDS: APIXABAN 2.5 MG TABLET PO SCH (20:25)
[2017-02-16] MEDS: PRAVASTATIN 40 MG TABLET PO SCH (20:25)
[2017-02-16] MEDS: GUAIFENESIN/D-METHORPHAN 600mg/30mg TABLET PO SCH (20:25)
[2017-02-16] MEDS: ATENOLOL 50 MG TABLET PO SCH (20:26)
[2017-02-17] MEDS: FUROSEMIDE 20 MG/2 ML INJECTION IVP SCH ×3 (01:09→16:44)
[2017-02-17] MEDS: LEVOTHYROXINE 25 MCG TABLET PO SCH (06:18)
[2017-02-17] MEDS: ALBUTEROL/IPRATROPIUM 2.5mg-0.5mg/3ml NEB AEROSOL SCH ×4 (07:02→19:06)
[2017-02-17] MEDS ORDERED: MAGNESIUM OXIDE 400 MG TABLET PO ONE (08:55)
[2017-02-17] MEDS: AMLODIPINE 10 MG TABLET PO SCH (09:22)
[2017-02-17] MEDS: FINASTERIDE 5 MG TABLET PO SCH (09:22)
[2017-02-17] MEDS: GUAIFENESIN/D-METHORPHAN 600mg/30mg TABLET PO SCH ×2 (09:22→20:35)
[2017-02-17] MEDS: AMIODARONE 200 MG TABLET PO SCH (09:22)
[2017-02-17] MEDS: APIXABAN 2.5 MG TABLET PO SCH ×2 (09:23→20:35)
[2017-02-17] MEDS: ATENOLOL 50 MG TABLET PO SCH ×2 (09:23→20:36)
[2017-02-17] MEDS: FOLIC ACID 1 MG TABLET PO SCH (09:23)
[2017-02-17] MEDS: TAMSULOSIN 0.4 MG CAPSULE PO SCH (09:23)
--- NOTE | 2017-02-17 09:56 | Progress Note ---
- Date 02/17/17 Subjective: F/U: Acute on chronic hypoxic respiratory failure, pulmonary edema, A/C diastolic HF Feeling much better today. Breathing easier-less cough and congestion. Can get air in better. No chest wall pain. Denies palpitations or chest pressure. Not feeling dizzy or unsteady when up. Eating well. No nausea or ab pain. Tolerating Cao. No f/c. Objective Vital signs: Temperature 97.8 F 02/17/17 07:29 Pulse Rate 66 02/17/17 07:30 Respiratory Rate 18 02/17/17 07:29 Blood Pressure 122/76 02/17/17 07:29 Pulse Oximetry 94 02/17/17 07:29 Height/Weight/BMI: Height 1.7 m Weight 87.3 kg Body Mass Index 31.6 - Constitutional Present: well nourished, well developed, average body habitus - Routine HEENT Exam Head: Present: normocephalic, atraumatic Eye: Present: EOMI, PERRL ENT: Present: mucous membranes moist - Routine Respiratory Exam Present: decreased breath sounds, distant breath sounds, diminished air movement. Absent: respiratory distress, wheezes, crackles - Routine Cardiovascular Exam Present: RRR, no murmur - Routine Abdominal Exam Present: soft, normoactive bowel sounds, non distended, non tender. Absent: guarding - Routine Extremities Exam Present: no edema, pulses intact. Absent: cyanosis, clubbing - Routine Musculoskeletal Exam Musculoskeletal: Present: no clubbing or cyanosis, normal strength - Routine Skin Exam Present: dry, warm - Routine Neurological Exam Present: alert, oriented X3, CN II-XII intact, moving all extremities, vision grossly intact, hearing grossly intact, normal speech. Absent: motor deficit, altered mental status - Routine Psychiatric Exam Present: normal affect, normal thought process, cooperative. Absent: anxious, agitated Results - Labs CBC & Chem 7: 02/17/17 04:49 02/17/17 04:49 Assessment and Plan (1) Congestive heart failure Problem details: Diastolic Current visit: No Status: Acute (2) Pulmonary edema Current visit: No Status: Acute Assessment and Plan: Assessment Pulmonary edema Acute on chronic hypoxic respiratory failure Acute on chronic diastolic heart failure Leukocytosis Coronary artery disease Atrial fibrillation Chronic anticoagulation with Eliquis secondary to Afib Hypertension Hyperlipidemia COPD Pulmonary hypertension Pulmonary nodules Nocturnal hypoxia BPH Stage III CKD Hypothyroidism Plan Urine output increased with Lasix, weight decreasing, clinical improvements noted. Continue with Lasix 20mg IV q 8 hour to help decrease pulmonary edema. Potassium with decrease to 3.8 - will give oral potassium 20mEq x 2 today. Magnesium normal at 1.7. With IV Lasix and cardiac issues, will give MagOx 400mg now. Will start bladder retraining. Possible able to decrease Lasix frequency tomorrow and remove Cao. Wean O2 as able - uses 1L with activities and rest. TSH trending down - Synthroid 0.025mg started since last discharge. Will continue this dose. Nursing to ambulate QID to help strength. Recheck BMP and Mg in am due to IV Lasix use. Will check CXR tomorrow to document improvement of pulmonary edema. Recheck CBC secondary to resolving leukocytosis and anticoagulants. Time spent with patient care 25 minutes. DVT Prophylaxis: SCD's, Eliquis Resuscitation Status: Full Code - Time spent with patient Time with patient PN: 25 minutes - Physician Narrative Physician: Konstantin Do MD Narrative: Date: 02/17/17 Time: 0953 Hospital Course Summary Disclaimer: The visit summary below is not to be considered part of the above Progress Note. Hospital Course: 02/16/17 Impression Pulmonary edema CHF Pretension Atrial fibrillation Coronary artery disease COPD pulmonary nodules BPH Chronic anticoagulation-Eliquis Plan Admit as a inpatient under the care of Dr Do for pulmonary edema, congestive heart failure He is currently requiring 5 liters of oxygen by nasal cannula to maintain saturations. Baseline is 1 Liter at night and with exertion Patient was given a one-time dose of IV Lasix 20 milligrams well in the emergency room. Did review patient's weights. Patient is 13 pounds since discharge at the end of October. Will Continue with Lasix scheduled every 8 hours. Monitor electrolytes carefully. May need potassium replacement Place Cao catheter to monitor accurate output, weight patient daily to trend weights and fluid status Will monitor cardiac telemetry and obtain serial troponins. Will continue with all home medications except Lasix Patient is chronically on Eliquis for anticoagulation SCD to bilateral lower ext for DVT prophylaxis Agent does wish to be a full code and this orders written. Will discuss further orders and plan of care with attending, Dr. Do At time of discharge medical care will return to primary care provider, Dr. Schroeder 02/17/17 Urine output increased with Lasix, weight decreasing, clinical improvements noted. Continue with Lasix 20mg IV q 8 hour to help decrease pulmonary edema. Potassium with decrease to 3.8 - will give oral potassium 20mEq x 2 today. Magnesium normal at 1.7. With IV Lasix and cardiac issues, will give MagOx 400mg now. Will start bladder retraining. Possible able to decrease Lasix frequency tomorrow and remove Cao. Wean O2 as able - uses 1L with activities and rest. TSH trending down - Synthroid 0.025mg started since last discharge. Will continue this dose. Nursing to ambulate QID to help strength.
[2017-02-17] MEDS ORDERED: PNEUMOCOCCAL 13 VACCINE 0.5ml INJECTION IM ONE (17:00)
[2017-02-17] MEDS ORDERED: PNEUMOCOCCAL VAC ADMIN CHARGE INJ ONE (18:00)
[2017-02-17] MEDS: PRAVASTATIN 40 MG TABLET PO SCH (20:35)
[2017-02-17] MEDS: SALINE FLUSH 10ml SYRINGE IVF PRN (20:36)
[2017-02-18] MEDS: FUROSEMIDE 20 MG/2 ML INJECTION IVP SCH ×4 (00:35→16:01)
[2017-02-18] MEDS: LEVOTHYROXINE 25 MCG TABLET PO SCH (06:10)
[2017-02-18] MEDS: ALBUTEROL/IPRATROPIUM 2.5mg-0.5mg/3ml NEB AEROSOL SCH ×4 (07:53→20:10)
[2017-02-18] MEDS: GUAIFENESIN/D-METHORPHAN 600mg/30mg TABLET PO SCH ×2 (08:49→20:36)
[2017-02-18] MEDS: TAMSULOSIN 0.4 MG CAPSULE PO SCH (08:49)
[2017-02-18] MEDS: AMLODIPINE 10 MG TABLET PO SCH (08:49)
[2017-02-18] MEDS: APIXABAN 2.5 MG TABLET PO SCH ×2 (08:49→20:36)
[2017-02-18] MEDS: FINASTERIDE 5 MG TABLET PO SCH (08:50)
[2017-02-18] MEDS: AMIODARONE 200 MG TABLET PO SCH (08:50)
[2017-02-18] MEDS: SALINE FLUSH 10ml SYRINGE IVF PRN ×2 (08:50→15:38)
[2017-02-18] MEDS: FOLIC ACID 1 MG TABLET PO SCH (08:50)
[2017-02-18] MEDS: ATENOLOL 50 MG TABLET PO SCH ×2 (08:52→20:37)
--- NOTE | 2017-02-18 11:22 | Progress Note ---
- Date 02/18/17 Subjective: F/U: Acute on chronic hypoxic respiratory failure, pulmonary edema, A/C diastolic HF Improving. Breathing feels better-cough and congestion decreasing. Feels less SOA. Ambulating better. Eating well-no nausea or ab pain. No f/c. Objective Vital signs: Temperature 96.3 F L 02/18/17 07:34 Pulse Rate 61 02/18/17 11:15 Respiratory Rate 18 02/18/17 10:47 Blood Pressure 113/69 02/18/17 07:34 Pulse Oximetry 95 02/18/17 11:15 Height/Weight/BMI: Height 1.7 m Weight 88 kg Body Mass Index 31.6 - Constitutional Present: well nourished, well developed, average body habitus, obese, cooperative - Routine HEENT Exam Head: Present: normocephalic, atraumatic Eye: Present: EOMI, PERRL ENT: Present: mucous membranes moist - Routine Respiratory Exam Present: decreased breath sounds, diminished air movement. Absent: respiratory distress, wheezes, crackles - Routine Cardiovascular Exam Present: RRR, no murmur - Routine Abdominal Exam Present: soft, normoactive bowel sounds, non distended, non tender. Absent: guarding - Routine Extremities Exam Present: no edema, pulses intact. Absent: cyanosis, clubbing - Routine Musculoskeletal Exam Musculoskeletal: Present: no clubbing or cyanosis, normal strength - Routine Neurological Exam Present: alert, oriented X3, CN II-XII intact, moving all extremities, vision grossly intact, hearing grossly intact, normal speech. Absent: motor deficit, altered mental status - Routine Psychiatric Exam Present: normal affect, normal thought process, cooperative, good insight, good judgment Results - Labs CBC & Chem 7: 02/18/17 03:55 02/18/17 03:55 Assessment and Plan (1) Congestive heart failure Problem details: Diastolic Current visit: No Status: Acute (2) Pulmonary edema Current visit: No Status: Acute Assessment and Plan: Assessment Pulmonary edema Acute on chronic hypoxic respiratory failure Acute on chronic diastolic heart failure Leukocytosis Coronary artery disease Atrial fibrillation Chronic anticoagulation with Eliquis secondary to Afib Hypertension Hyperlipidemia COPD Pulmonary hypertension Pulmonary nodules Nocturnal hypoxia BPH Stage III CKD Hypothyroidism Plan Clinically improving. Breathing well-maintaining saturations on RA. Ambulating well in halls. Not dizzy or unsteady. Cao removed this am. Will make sure patient able to urinate well with Cao out. Anticipate discharge to home soon. Time spent with patient care 25 minutes. DVT Prophylaxis: Eliquis Resuscitation Status: Full Code - Physician Narrative Physician: Konstantin Do MD Narrative: Date: 02/18/17 Time: 1118 Hospital Course Summary Disclaimer: The visit summary below is not to be considered part of the above Progress Note. Hospital Course: 02/16/17 Impression Pulmonary edema CHF Pretension Atrial fibrillation Coronary artery disease COPD pulmonary nodules BPH Chronic anticoagulation-Eliquis Plan Admit as a inpatient under the care of Dr Do for pulmonary edema, congestive heart failure He is currently requiring 5 liters of oxygen by nasal cannula to maintain saturations. Baseline is 1 Liter at night and with exertion Patient was given a one-time dose of IV Lasix 20 milligrams well in the emergency room. Did review patient's weights. Patient is 13 pounds since discharge at the end of October. Will Continue with Lasix scheduled every 8 hours. Monitor electrolytes carefully. May need potassium replacement Place Cao catheter to monitor accurate output, weight patient daily to trend weights and fluid status Will monitor cardiac telemetry and obtain serial troponins. Will continue with all home medications except Lasix Patient is chronically on Eliquis for anticoagulation SCD to bilateral lower ext for DVT prophylaxis Agent does wish to be a full code and this orders written. Will discuss further orders and plan of care with attending, Dr. Do At time of discharge medical care will return to primary care provider, Dr. Schroeder 02/17/17 Urine output increased with Lasix, weight decreasing, clinical improvements noted. Continue with Lasix 20mg IV q 8 hour to help decrease pulmonary edema. Potassium with decrease to 3.8 - will give oral potassium 20mEq x 2 today. Magnesium normal at 1.7. With IV Lasix and cardiac issues, will give MagOx 400mg now. Will start bladder retraining. Possible able to decrease Lasix frequency tomorrow and remove Cao. Wean O2 as able - uses 1L with activities and rest. TSH trending down - Synthroid 0.025mg started since last discharge. Will continue this dose. Nursing to ambulate QID to help strength.
[2017-02-18] MEDS: PRAVASTATIN 40 MG TABLET PO SCH (20:37)
[2017-02-19] MEDS: LEVOTHYROXINE 25 MCG TABLET PO SCH (06:08)
[2017-02-19] MEDS: ALBUTEROL/IPRATROPIUM 2.5mg-0.5mg/3ml NEB AEROSOL SCH ×2 (07:09→11:10)
[2017-02-19 07:22] VITALS: BP 113/72; RESP 16; TEMP 95.3; O2SAT 90
[2017-02-19] MEDS: AMLODIPINE 10 MG TABLET PO SCH (09:00)
[2017-02-19] MEDS: GUAIFENESIN/D-METHORPHAN 600mg/30mg TABLET PO SCH (09:00)
[2017-02-19] MEDS: AMIODARONE 200 MG TABLET PO SCH (09:00)
[2017-02-19] MEDS ORDERED: FUROSEMIDE 40 MG/4 ML INJECTION IVP SCH (09:00)
[2017-02-19] MEDS: ATENOLOL 50 MG TABLET PO SCH (09:01)
[2017-02-19] MEDS: APIXABAN 2.5 MG TABLET PO SCH (09:01)
[2017-02-19] MEDS: FOLIC ACID 1 MG TABLET PO SCH (09:01)
[2017-02-19] MEDS: FINASTERIDE 5 MG TABLET PO SCH (09:01)
[2017-02-19] MEDS: TAMSULOSIN 0.4 MG CAPSULE PO SCH (09:01)
[2017-02-19 09:43] VITALS: PULSE 63
--- NOTE | 2017-02-19 09:55 | Progress Note ---
- Date 02/19/17 Subjective: F/U: Acute on chronic hypoxic respiratory failure, pulmonary edema, A/C diastolic HF Doing well this morning. Breathing well. Not feeling congested or SOA. Does note minor cough and tickle in throat. No chest pain/pressure. Not having chest wall soreness. Urinating well. Eating well-no ab pain or nausea. Ambulating without difficulties. Objective Vital signs: Temperature 95.3 F L 02/19/17 07:22 Pulse Rate 63 02/19/17 08:00 Respiratory Rate 16 02/19/17 07:22 Blood Pressure 113/72 02/19/17 07:22 Pulse Oximetry 90 02/19/17 07:22 Height/Weight/BMI: Height 1.7 m Weight 88 kg Body Mass Index 31.6 - Constitutional Present: no acute distress, well nourished, well developed, cooperative - Routine HEENT Exam Head: Present: normocephalic, atraumatic Eye: Present: EOMI, PERRL ENT: Present: mucous membranes moist - Routine Respiratory Exam Present: decreased breath sounds. Absent: respiratory distress, rhonchi, wheezes, crackles - Routine Cardiovascular Exam Present: RRR, no murmur - Routine Abdominal Exam Present: soft, normoactive bowel sounds, non distended, non tender. Absent: guarding - Routine Extremities Exam Present: no edema, pulses intact. Absent: cyanosis, clubbing - Routine Musculoskeletal Exam Musculoskeletal: Present: no clubbing or cyanosis, normal strength - Routine Skin Exam Present: intact, dry, warm - Routine Neurological Exam Present: alert, oriented X3, CN II-XII intact, moving all extremities, vision grossly intact, hearing grossly intact, normal speech. Absent: motor deficit, altered mental status - Routine Psychiatric Exam Present: normal affect, normal thought process, cooperative, good insight, good judgment Results - Labs CBC & Chem 7: 02/18/17 03:55 02/19/17 03:52 Assessment and Plan (1) Congestive heart failure Problem details: Diastolic Current visit: No Status: Acute (2) Pulmonary edema Current visit: No Status: Acute Assessment and Plan: Assessment Pulmonary edema Acute on chronic hypoxic respiratory failure Acute on chronic diastolic heart failure Leukocytosis Coronary artery disease Atrial fibrillation Chronic anticoagulation with Eliquis secondary to Afib Hypertension Hyperlipidemia COPD Pulmonary hypertension Pulmonary nodules Nocturnal hypoxia BPH Stage III CKD Hypothyroidism Plan Breathing improved - clinical symptoms resolved. Maintaining saturations well on RA. Urinating well with Cao removed. No retention. Creatinine with increase to 2.1 - secondary to increased diuretic use to motivate fluid. Potassium normal. Will discharge to home. Encourage continuation of Lasix 20mg daily to help control volume. May use Mucinex DM and cough drops as needed for minor cough he has. Avoid could weather as could cause worsening cardiopulmonary symptoms. Activities as tolerated. Low sodium diet. F/U with Dr Schroeder in 1 week - recommend checking BMP at that time to monitor electrolytes and renal status. See orders for detail. Time spent with patient care and discharge greater than 30 minutes. DVT Prophylaxis: Eliquis Resuscitation Status: Full Code - Physician Narrative Physician: Konstantin Do MD Narrative: Date: 02/19/17 Time: 950 Hospital Course Summary Disclaimer: The visit summary below is not to be considered part of the above Progress Note. Hospital Course: 02/16/17 Impression Pulmonary edema CHF Pretension Atrial fibrillation Coronary artery disease COPD pulmonary nodules BPH Chronic anticoagulation-Eliquis Plan Admit as a inpatient under the care of Dr Do for pulmonary edema, congestive heart failure He is currently requiring 5 liters of oxygen by nasal cannula to maintain saturations. Baseline is 1 Liter at night and with exertion Patient was given a one-time dose of IV Lasix 20 milligrams well in the emergency room. Did review patient's weights. Patient is 13 pounds since discharge at the end of October. Will Continue with Lasix scheduled every 8 hours. Monitor electrolytes carefully. May need potassium replacement Place Cao catheter to monitor accurate output, weight patient daily to trend weights and fluid status Will monitor cardiac telemetry and obtain serial troponins. Will continue with all home medications except Lasix Patient is chronically on Eliquis for anticoagulation SCD to bilateral lower ext for DVT prophylaxis Agent does wish to be a full code and this orders written. Will discuss further orders and plan of care with attending, Dr. Do At time of discharge medical care will return to primary care provider, Dr. Schroeder 02/17/17 Urine output increased with Lasix, weight decreasing, clinical improvements noted. Continue with Lasix 20mg IV q 8 hour to help decrease pulmonary edema. Potassium with decrease to 3.8 - will give oral potassium 20mEq x 2 today. Magnesium normal at 1.7. With IV Lasix and cardiac issues, will give MagOx 400mg now. Will start bladder retraining. Possible able to decrease Lasix frequency tomorrow and remove Cao. Wean O2 as able - uses 1L with activities and rest. TSH trending down - Synthroid 0.025mg started since last discharge. Will continue this dose. Nursing to ambulate QID to help strength. 02/19/17 Breathing improved - clinical symptoms resolved. Maintaining saturations well on RA. Urinating well with Cao removed. No retention. Creatinine with increase to 2.1 - secondary to increased diuretic use to motivate fluid. Potassium normal. Will discharge to home. Encourage continuation of Lasix 20mg daily to help control volume. May use Mucinex DM and cough drops as needed for minor cough he has. Avoid could weather as could cause worsening cardiopulmonary symptoms. Activities as tolerated. Low sodium diet. F/U with Dr Schroeder in 1 week - recommend checking BMP at that time to monitor electrolytes and renal status. See orders for detail.
--- NOTE | 2017-02-19 10:15 | Discharge Summary ---
Discharge Information Date of admission: 02/16/17 12:56 Anticipated date of discharge: 02/19/17 Attending Physician: Konstantin Do MD Primary care physician: Dayday Schroeder MD - Discharge Diagnosis (1) Congestive heart failure Status: Acute (2) Pulmonary edema Status: Acute Discharge diagnosis Pulmonary edema Acute on chronic hypoxic respiratory failure Associated conditions and complications Acute on chronic diastolic heart failure Leukocytosis Coronary artery disease Atrial fibrillation Chronic anticoagulation with Eliquis secondary to Afib Hypertension Hyperlipidemia COPD Pulmonary hypertension Pulmonary nodules Nocturnal hypoxia BPH Stage III CKD Hypothyroidism - Laboratory Labs: Admit Lab 02/16/17 10:56 WBC 12.0 H Hgb 12.5 L Hct 37.9 L MCV 94.0 Plt Count 291 Neutrophils % (Manual) 85.0 H Band Neutrophils % 4.0 Lymphocytes % (Manual) 6.0 L Monocytes % (Manual) 3.0 Eosinophils % (Manual) 1.0 Admit Lab 02/16/17 02/16/17 11:28 16:05 Sodium 142 Potassium 4.6 Chloride 105 Carbon Dioxide 26 Anion Gap 11 BUN 39.0 H Creatinine 1.8 H GFR Calculation 36 Glucose 116 H Calculated Osmolality 283 H Total Bilirubin 1.00 AST 21 ALT 26 Alkaline Phosphatase 86 Troponin I < 0.012 B-Natriuretic Peptide 1690 H Albumin 4.0 TSH 5.01 H 02/18/17 03:55 02/19/17 03:52 - Radiology Radiology: Date of Exam: 02/16/17 PROCEDURE: CHEST 2-VIEWS UPRIGHT (PA & LAT) FINDINGS: Increasing hazy bilateral airspace opacity with chronic interstitial prominence. Right basilar scarring. No pneumothorax. Trace effusions. Heart size and mediastinal contours are stable. Impression: Moderate pulmonary edema. History of Present Illness HPI: Mr Holden is a pleasant 86, showed male who is known to the Hospital services from previous admissions. Patient is under the primary care provider, Dr. Ramses Schroeder. Patient resides at home with his and they have [id number] caregivers. He noticed for the last several days he has had increased shortness of breath, yesterday he started having coughing with more dyspnea. He needed to increase oxygen to 3 liters. Patient chronically uses 1 liter at night and 1 liter with exertion. 's morning. Granddaughter reports she checked patient's O2 sats and they were 86% on 3 liters. Given the increased cough and dyspnea, and hypoxia, she brought to the emergency room for further evaluation. Further laboratory studies were obtained. Patient was found have an elevated white count at 12.0, 85% neutrophils, 4% bands, hemoglobin 12.5. Chemistry panel is reviewed, renal function slightly elevated with a creatinine of 1.8 which appears to be about baseline. Troponin was negative, proBNP 1690. Urine is negative, d-dimer 332. Chest x-ray was obtained that did show moderate pulmonary edema. Given this finding, accompanied with his increased oxygen to meet needs to 5 liters to maintain adequate saturations. The hospitalist services were contacted and accepted patient is inpatient for further evaluation and treatment. It is reported that patient has not been taking his Lasix because he does not like urinating frequently. Granddaughter, who is his caregiver also reports he has not been using the oxygen regularly at night as he does not like the noise of the concentrator. Did discuss advanced directives and he does wish to be a full code. For complete details of the H&P refer to that document. Objective Vital signs: Temperature 95.3 F L 02/19/17 07:22 Pulse Rate 63 02/19/17 08:00 Respiratory Rate 16 02/19/17 07:22 Blood Pressure 113/72 02/19/17 07:22 Pulse Oximetry 90 02/19/17 07:22 Height/Weight/BMI: Height 1.7 m Weight 88 kg Body Mass Index 31.6 Hospital Course This is a general summary of the patient's hospital course. For more details refer to the complete medical record. Hospital course: 02/16/17 Impression Pulmonary edema CHF Pretension Atrial fibrillation Coronary artery disease COPD pulmonary nodules BPH Chronic anticoagulation-Eliquis Plan Admit as a inpatient under the care of Dr Do for pulmonary edema, congestive heart failure He is currently requiring 5 liters of oxygen by nasal cannula to maintain saturations. Baseline is 1 Liter at night and with exertion Patient was given a one-time dose of IV Lasix 20 milligrams well in the emergency room. Did review patient's weights. Patient is 13 pounds since discharge at the end of October. Will Continue with Lasix scheduled every 8 hours. Monitor electrolytes carefully. May need potassium replacement Place Cao catheter to monitor accurate output, weight patient daily to trend weights and fluid status Will monitor cardiac telemetry and obtain serial troponins. Will continue with all home medications except Lasix Patient is chronically on Eliquis for anticoagulation SCD to bilateral lower ext for DVT prophylaxis Agent does wish to be a full code and this orders written. Will discuss further orders and plan of care with attending, Dr. Do At time of discharge medical care will return to primary care provider, Dr. Schroeder 02/17/17 Urine output increased with Lasix, weight decreasing, clinical improvements noted. Continue with Lasix 20mg IV q 8 hour to help decrease pulmonary edema. Potassium with decrease to 3.8 - will give oral potassium 20mEq x 2 today. Magnesium normal at 1.7. With IV Lasix and cardiac issues, will give MagOx 400mg now. Will start bladder retraining. Possible able to decrease Lasix frequency tomorrow and remove Cao. Wean O2 as able - uses 1L with activities and rest. TSH trending down - Synthroid 0.025mg started since last discharge. Will continue this dose. Nursing to ambulate QID to help strength. 02/18/17 Clinically improving. Breathing well-maintaining saturations on RA. Ambulating well in halls. Not dizzy or unsteady. Cao removed this am. Will make sure patient able to urinate well with Cao out. Will decrease Lasix to 20mg IV BID for today, 40mg IV tomorrow am. Potassium and renal status stable. Anticipate discharge to home soon. 02/19/17 Discharge Breathing improved - clinical symptoms resolved. Maintaining saturations well on RA. Urinating well with Cao removed. No retention. Creatinine with increase to 2.1 - secondary to increased diuretic use to motivate fluid. Potassium normal. Will discharge to home. Encourage continuation of Lasix 20mg daily to help control volume. May use Mucinex DM and cough drops as needed for minor cough he has. Avoid could weather as could cause worsening cardiopulmonary symptoms. Activities as tolerated. Low sodium diet. F/U with Dr Schroeder in 1 week - recommend checking BMP at that time to monitor electrolytes and renal status. See orders for detail. Time spent with patient: discharge greater than 30 minutes DVT Prophylaxis: SCD's, Eliquis Discharge Plan - Discharge Disposition Discharge Date: 02/19/17 Disposition: 01 Discharged Home, Self-Care *Condition: Stable Reason For Visit (Visit label in EMR): Pulmonary edema - Discharge Medications *Discharge Medications: New Menthol Cough Drops [Ricola Sf] 1 lozenge MM PRN PRN lozenge PRN Reason: Cough Pravastatin [Pravachol] 40 mg PO HS tab Sodium Chloride [[place]] 104 ml NS QID PRN #1 bottle PRN Reason: nasal congestion/dryness Guaifenesin/Dm [Mucinex Dm] 1 tab PO BID 7 Days tab Continue Apixaban [Eliquis] 2.5 mg PO BID Pravastatin Sodium 40 mg PO HS Folic Acid [Folate] 1 mg PO DAILY Tamsulosin [Flomax] 0.4 mg PO DAILY Amlodipine [Norvasc] 10 mg PO DAILY Amiodarone [Pacerone] 200 mg PO DAILY Atenolol [Tenormin] 50 mg PO QAM Atenolol [Tenormin] 25 mg PO PM Furosemide [Lasix] 20 mg PO DAILY #30 tab Levothyroxine Sodium 25 mcg PO ACB Finasteride [Proscar] 5 mg PO DAILY - Discharge Packet/Instructions *Diet: Low sodium *Activity: As tolerated *Pain Management/Treatment: Continue prior pain medications as before hospitalization *Wound Care: N/A Additional Instructions: Use Mucinex DM twice a day as needed for cough and congestion. Use Nasal saline (or nasal flush) as needed for nasal dryness/ congestion. Check your weight every day. Be sure to use Lasix (furosemide) 20mg every day to control volume. Avoid cold weather. *Expected Signs/Symptoms: Improvement of breatihng. *Notify Physician if: Temp >100.4. Worsening breathing or cough. *During Business Hours Contact: Dr Schroeder *After Business Hours Contact: [place] [facility] [place]eder or his covering provider notified. *Pending Lab/Results: No Pending Lab - Referrals/Follow Up *Referrals/Follow Up: Dayday Schroeder MD [Family Provider] - 1 Week (Hospital follow up. Recommend rechecking BMP at that time secondary to medication use and Stage III CKD. ) - Patient Handouts Patient Handouts: [facility] [place] Congestive Heart Failure, Pulmonary Edema (DC) - Dismissal Complete Discharge Instructions are:: Complete Physician Narrative - Narrative Physician: Konstantin Do MD Attestation Narrative: Date: 02/19/17 Time: 1011 I have independently interviewed and examined patient prior to discharge. See my progress note from today for details. Medically stable for discharge to home. Of note: Pravachol is NOT a new medication started this hospitalization. Patient was on Pravachol prior to admission.
--- NOTE | 2017-02-19 10:50 | XRay Report ---
INDICATION: f/u pulmonary edema PROCEDURE: CHEST 2-VIEWS UPRIGHT (PA & LAT) Encounter: Initial COMPARISON: 02/16/2017 and November 18, 2016 FINDINGS: Bilateral diffuse interstitial prominence is again noted with peripheral opacities in the mid to lower lung olsen. Overall appearance is stable. No pneumothorax or new infiltrate. Heart size and mediastinal contours are stable. Impression: Stable appearance of the chest. Given the similar appearance on the past two exams this may be due to a chronic interstitial prominence such as interstitial lung disease rather than acute interstitial edema. .
== END 2017-02-19 11:55 | disposition home or self-care (01) | DRG 291 ==
LOC: ED 10:18 → MED 12:56
PROVIDERS: ADMIT Hospitalist; ATTEND Hospitalist